=== PATIENT | male | born 1960 | race American Indian/Alaskan Native ===

== ENCOUNTER 2018-07-08 11:45 | Inpatient (IN) | payer MEDICAID, MEDICARE, OTHER ==
[2018-07-08] MEDS ORDERED: ZOFRAN IV ONE (12:47)
[2018-07-08] MEDS ORDERED: SUBLIMAZE IV ONE (12:47)
--- NOTE | 2018-07-08 13:00 | Emergency Department Report ---
HPI - General Chief Complaint: Abdominal Pain Time Seen by Provider: 07/08/18 12:28 - HPI HPI: Room 10 The patient is a 58-year-old male presenting with a chief complaint of abdominal pain. The patient states he's had intermittent periumbilical and epigastric abdominal pain for the past month. Patient describes the pain is dull in nature. Patient denies nausea vomiting or diarrhea. Patient denies history of fever. Patient admits to constipation. The patient states when he awakened this morning he had pain along the proximal aspect of his left forearm. Patient denies any preceding trauma Location: [See above] Duration: One month Quality: Dull Severity: Moderate Modifying factors: [see above] Context: [see above] Mode of transportation: [not driving] ED Past Medical Hx - Past Medical History Previous Medical History?: No - Surgical History Past Surgical History?: No - Family History Family history: no significant - Social History Smoking Status: Never Smoker Substance Use Type: None (denies illicit drug use) - Medications Home Medications: Home Medications Medication Instructions Recorded Confirmed Last Taken Type No Known Home Medications [No 07/08/18 07/08/18 Unknown History Reported Home Medications] ED Review of Systems ROS: Stated complaint: ABD PAIN Other details as noted in HPI Constitutional: denies: fever Eyes: denies: eye pain ENT: denies: throat pain Respiratory: no symptoms reported Cardiovascular: denies: chest pain Endocrine: no symptoms reported Gastrointestinal: abdominal pain. denies: nausea, vomiting, diarrhea Genitourinary: denies: dysuria Musculoskeletal: denies: back pain Neurological: denies: headache Physical Exam - Physical Exam Vital Signs: Vital Signs 07/08/18 12:11 Temperature 98.2 F Pulse Rate 65 Respiratory 18 Rate Blood Pressure 154/86 O2 Sat by Pulse 100 Oximetry Physical Exam: GENERAL: The patient is well-developed well-nourished male lying on stretcher not appear to be in acute distress. [] HEENT: Normocephalic. Atraumatic. Extraocular motions are intact. Patient has moist mucous membranes. NECK: Supple. Trachea midline CHEST/LUNGS: Clear to auscultation. There is no respiratory distress noted. HEART/CARDIOVASCULAR: Regular. There is no tachycardia. There is no gallop rub or murmur. ABDOMEN: Abdomen is soft but gaseous, nontender. Patient has normal bowel sounds. There is moderate abdominal distention. SKIN: There is no rash. There is no edema. There is no diaphoresis. NEURO: The patient is awake, alert, and oriented. The patient is cooperative. The patient has normal speech MUSCULOSKELETAL: There is no evidence of acute injury. RECTAL : Guaiac negative brown stool ED Course Vital Signs 07/08/18 12:11 Temperature 98.2 F Pulse Rate 65 Respiratory 18 Rate Blood Pressure 154/86 O2 Sat by Pulse 100 Oximetry ED Medical Decision Making - Lab Data Result diagrams: 07/08/18 14:03 07/08/18 13:13 Laboratory Tests 07/08/18 07/08/18 13:13 14:03 WBC 6.7 RBC 2.99 L Hgb 4.4 L* Hct 17.3 L* MCV 58 L MCH 15 L MCHC 26 L RDW 23.2 H Plt Count 899 H Sodium 135 L Potassium 3.9 Chloride 101.0 Carbon Dioxide 20 L Anion Gap 18 BUN 11 Creatinine 0.6 L Estimated GFR > 60 BUN/Creatinine Ratio 18 Glucose 99 Calcium 8.6 Total Bilirubin 0.30 AST 9 ALT < 5 L Alkaline Phosphatase 77 Total Protein 7.7 Albumin 3.1 L Albumin/Globulin Ratio 0.7 Lipase 16 - Radiology Data Radiology results: report reviewed (CT abdomen and pelvis) - Differential Diagnosis gastritis, peptic ulcer disease, pancreatitis Critical care attestation.: If time is entered above; I have spent that time in minutes in the direct care of this critically ill patient, excluding procedure time. ED Disposition Clinical Impression: Abdominal pain, Liver mass, Anemia, Bilateral pleural effusion Disposition: OP ADMIT IP TO THIS HOSP Is pt being admited?: Yes Does the pt Need Aspirin: No Condition: Fair Time of Disposition: 15:25 (hospitalist notified (Dr Lizarraga))
[2018-07-08 13:53] LABS: Albumin 3.1 g/dL (3.9-5); BUN/Creatinine Ratio 18; Blood Urea Nitrogen 11 mg/dL (9-20); Calcium 8.6 mg/dL (8.4-10.2); Hemolysis Index 0
[2018-07-08 13:56] LABS: Alanine Aminotransferase < 5 units/L (7-56)
[2018-07-08 14:19] LABS: Mean Corpuscular HGB Conc 26 % (32-34); Platelet Count 899 K/mm3 (140-440); Red Blood Count 2.99 M/mm3 (3.65-5.03)
[2018-07-08 14:31] LABS: Hematocrit 17.3 % (35.5-45.6); Hemoglobin 4.4 gm/dl (11.8-15.2); Mean Corpuscular Volume 58 fl (84-94); Red Cell Distribution Width 23.2 % (13.2-15.2)
[2018-07-08] MEDS ORDERED: NACL 0.9% 500 ML 500 ML IV ONE (14:34)
--- NOTE | 2018-07-08 15:08 | Cat Scan Report ---
CT scan of abdomen and pelvis with IV contrast: History: Epigastric abdominal pain. Findings Bibasilar atelectasis. Moderate right pleural effusion with minimal left pleural effusion. Minimal to moderate pericardial effusion with a thickness of 1.3 cm. Circumscribed hypoechoic mass in the liver measuring 3.6 x 8.07 cm. Normal spleen. Atrophic pancreas. Very large amount of ascitic fluid in the abdomen. Normal adrenals kidneys and bladder. Calcification in the central prostate. Prostate measures 4x4 0.2 cm. Gaseous colon with stool in colon. Impression: Bilateral pleural effusion and pericardial effusion as detailed above. Mass in the liver. Large amount of ascitic fluid in the abdomen.
--- NOTE | 2018-07-08 15:48 | History and Physical Report ---
History of Present Illness Chief complaint: He hasn't been taking care of himself History of present illness: 58 YO Male with Developmental Delay, Debility presents to ED for evaluation. Pt is unable to provide detailed history. Pt sister is at bedside during exam and interview and provides history. As per sister, the patient has experienced 30lbs weight loss over the past 2 month, as well as decreased oral intake, abdominal pain, generalized weakness, and inability to care for himself. EMS notified and upon arrival the patient was found to be in distress and transported to [facility]. Pt seen and evaluated in ED and found to have Blood loss anemia suspected secondary to Colon Cancer, Acidosis, and, Hyponatremia. Pt admitted to Medical Floor. GI consulted in ED. No report of fever, chills, CP, palpitations, NVD, Trauma, Skin Rash, productive cough, or recent ill contacts. No further history obtailable. No report of BRBPR. No prior admission for review. No medication listed for reconciliation at time of admission. Past History Past Medical History: other (Developmental Delay, Debility) Past Surgical History: No surgical history, Other (reviewed) Social history: single. denies: smoking, alcohol abuse, prescription drug abuse Family history: hypertension Medications and Allergies Allergies Allergy/AdvReac Type Severity Reaction Status Date / Time No Known Allergies Allergy Unverified 07/08/18 12:10 Home Medications Medication Instructions Recorded Confirmed Last Taken Type No Known Home Medications [No 07/08/18 07/08/18 Unknown History Reported Home Medications] Review of Systems ROS unobtainable: due to mental status Exam - Constitutional Vitals: Temp Pulse Resp BP Pulse Ox 98.2 F 65 18 154/86 100 07/08/18 12:11 07/08/18 12:11 07/08/18 13:40 07/08/18 12:11 07/08/18 12:30 General appearance: Present: mild distress - EENT Eyes: Present: EOM intact (conjunctival pallor) ENT: hearing intact, clear oral mucosa - Neck Neck: Present: supple, normal ROM - Respiratory Respiratory effort: normal Respiratory: bilateral: CTA - Cardiovascular Heart Sounds: Present: S1 & S2. Absent: rub, click - Extremities Extremities: pulses symmetrical, No edema Peripheral Pulses: within normal limits - Abdominal General gastrointestinal: Present: soft Male genitourinary: Present: normal - Integumentary Integumentary: Present: clear, warm, dry - Musculoskeletal Musculoskeletal: generalized weakness - Psychiatric Psychiatric: no appropriate mood/affect, no intact judgment & insight, no memory intact - Neurologic Neurologic: CNII-XII intact, moves all extremities, no gait normal Results - Labs CBC & Chem 7: 07/08/18 14:03 07/08/18 13:13 Labs: Abnormal lab results 07/08/18 07/08/18 Range/Units 13:13 14:03 RBC 2.99 L (3.65-5.03) M/mm3 Hgb 4.4 L* (11.8-15.2) gm/dl Hct 17.3 L* (35.5-45.6) % MCV 58 L (84-94) fl MCH 15 L (28-32) pg MCHC 26 L (32-34) % RDW 23.2 H (13.2-15.2) % Plt Count 899 H (140-440) K/mm3 Sodium 135 L (137-145) mmol/L Carbon Dioxide 20 L (22-30) mmol/L Creatinine 0.6 L (0.8-1.5) mg/dL ALT < 5 L (7-56) units/L Albumin 3.1 L (3.9-5) g/dL Assessment and Plan - Patient Problems (1) Bilateral pleural effusion Current Visit: Yes Status: Acute Plan to address problem: Sespect secondary to ascites, Right Lateral decubitus chest x ray, consider thoracentesis if effesion is amenable for drainage. IR consulted. (2) Acidosis Current Visit: Yes Status: Acute Plan to address problem: IVF resuscitation therapy, repeat bmp in AM. (3) Hyponatremia syndrome Current Visit: Yes Status: Acute Plan to address problem: IVF resuscitation therapy as tolerated, repeat bmp in AM. (4) Colon cancer metastasized to liver Current Visit: Yes Status: Acute Plan to address problem: GI consulted for endoscopy, stool hemoccult, CT Abdomen pelvis, pain control, CMP, (5) Anemia Current Visit: Yes Status: Acute Plan to address problem: CBC, PRBC Transfusion, supportive care. (6) Liver mass Current Visit: Yes Status: Acute Plan to address problem: CT ABdomen/Pelvis, GI consulted, CEA, CA 19-9, (7) DVT prophylaxis Current Visit: Yes Status: Acute Plan to address problem: SCD to BLE while in bed. Hold anticoagulation for now due to symptomatic anemia.
[2018-07-08 15:51] LABS: Anisocytosis 2+; RBC Morphology Normal; Total Cells Counted 100
[2018-07-08 15:52] LABS: Hypochromasia 3+
[2018-07-08] MEDS ORDERED: ZOFRAN IV PRN (15:52)
[2018-07-08] MEDS ORDERED: TYLENOL PO PRN (15:52)
[2018-07-08] MEDS ORDERED: PROVENTIL IH PRN (15:52)
[2018-07-08] MEDS ORDERED: SODIUM CHLORIDE FLUSH SYRINGE 10 ML IV PRN (15:52)
[2018-07-08] MEDS ORDERED: NACL 0.9% 500 ML 500 ML IV SCH (15:58)
[2018-07-08 18:15] LABS: Free T4 (Free Thyroxine) 1.17 ng/dL (0.76-1.46)
[2018-07-08] MEDS: DILAUDID IV PRN (19:30)
--- NOTE | 2018-07-08 20:28 | XRay Report ---
PROCEDURE: XR CHEST 1V AP TECHNIQUE: Chest radiograph single view. HISTORY: Effusion COMPARISONS: None . FINDINGS: Heart: Normal. Mediastinum/Vessels: Normal. Lungs/Pleural space: There is moderate degree of right pleural effusion. Left lung and left pleural space are clear.. Bony thorax: No acute osseous abnormality. Life support devices: None. IMPRESSION: Moderate degree right pleural effusion obscuring the right lower lung. This document is electronically signed by Fei Webster MD., Jul 08 2018 08:26:42 PM ET
[2018-07-08] MEDS ORDERED: HEPARIN SUB-Q SCH (22:00)
[2018-07-08] MEDS: SODIUM CHLORIDE FLUSH SYRINGE 10 ML IV SCH (22:34)
[2018-07-09 08:07] LABS: Hematocrit 25.1 % (35.5-45.6); Hemoglobin 7.5 gm/dl (11.8-15.2); Mean Corpuscular HGB Conc 30 % (32-34); Platelet Count 584 K/mm3 (140-440); Red Blood Count 3.71 M/mm3 (3.65-5.03)
[2018-07-09 08:09] LABS: Mean Corpuscular Volume 68 fl (84-94)
--- NOTE | 2018-07-09 10:53 | Gastroenterology Consultation ---
History of Present Illness - Reason for Consult Consult date: 07/09/18 liver mass Requesting physician: TON MARTINEZ - History of Present Illness Patient is a 58 y/o male with PMH of developmental delay, debility who presented to ED for evaluation of abdominal pain and generalized weakness. Upon admission he was found to be severely anemic with abd CT showing liver mass with ascites to which GI has been consulted. This morning patient was resting in bed w/o acute distress and family at bedside who assisted with providing history (patient noted to be poor historian). Reports generalized abd pain x 1-2 months with associated decrease in appetite and wt loss (~30lbs). No active signs of bleeding such as hematemesis, melena, or hematochezia. Denies fever, CP, N/V, diarrhea, or constipation (per chart review admitted to constipation upon arrival). Unsure of last BM. No NSAID use, alcohol use, or illicit drug use. No hx of liver disease or PUD. No prior EGD/colonoscopy. No known Fhx of GI cancers. Past History Past Medical History: other (Developmental Delay, Debility) Past Surgical History: No surgical history Social history: single. denies: smoking, alcohol abuse, prescription drug abuse Family history: hypertension Medications and Allergies Allergies Allergy/AdvReac Type Severity Reaction Status Date / Time No Known Allergies Allergy Unverified 07/08/18 12:10 Home Medications Medication Instructions Recorded Confirmed Last Taken Type No Known Home Medications [No 07/08/18 07/08/18 Unknown History Reported Home Medications] Active Meds: Active Medications Acetaminophen (Tylenol) 650 mg PO Q4H PRN PRN Reason: Pain MILD(1-3)/Fever >100.5/SALDAÑA Albuterol (Proventil) 2.5 mg IH Q4HRT PRN PRN Reason: Shortness Of Breath Hydromorphone HCl (Dilaudid) 0.5 mg IV Q4H PRN PRN Reason: pain Last Admin: 07/08/18 19:30 Dose: 0.5 mg Documented by: Ondansetron HCl (Zofran) 4 mg IV Q8H PRN PRN Reason: Nausea And Vomiting Sodium Chloride (Sodium Chloride Flush Syringe 10 Ml) 10 ml IV BID KRISHAN Last Admin: 07/08/18 22:34 Dose: 10 ml Documented by: Sodium Chloride (Sodium Chloride Flush Syringe 10 Ml) 10 ml IV PRN PRN PRN Reason: LINE FLUSH Sodium Chloride (Nacl 0.9% 500 Ml) 500 ml IV ONCE ONE Stop: 07/09/18 11:01 medications reviewed/updated as required Review of Systems - Review of Systems All systems: negative Constitutional: weakness, poor appetite Gastrointestinal: abdominal pain Exam - Constitutional Vital Signs: Temp Pulse Resp BP Pulse Ox 97.9 F 68 20 157/70 99 07/09/18 05:45 07/09/18 05:45 07/09/18 05:45 07/09/18 05:45 07/09/18 08:52 General appearance: no acute distress - Respiratory Respiratory: bilateral: diminished - Cardiovascular Rhythm: regular - Gastrointestinal General gastrointestinal: Present: soft, non-tender, distended (ascites), normal bowel sounds - Labs CBC & Chem 7: 07/09/18 07:42 07/08/18 13:13 Lab Results: Laboratory Results - last 24 hr 07/08/18 07/08/18 07/08/18 13:13 14:03 15:24 WBC 6.7 RBC 2.99 L Hgb 4.4 L* Hct 17.3 L* MCV 58 L MCH 15 L MCHC 26 L RDW 23.2 H Plt Count 899 H Add Manual Diff Complete Total Counted 100 Seg Neuts % (Manual) 68.0 Band Neutrophils % 0 Lymphocytes % (Manual) 21.0 Reactive Lymphs % (Man) 0 Monocytes % (Manual) 9.0 H Eosinophils % (Manual) 1.0 Basophils % (Manual) 1.0 Metamyelocytes % 0 Myelocytes % 0 Promyelocytes % 0 Blast Cells % 0 Nucleated RBC % Not Reportable Seg Neutrophils # Man 4.6 Band Neutrophils # 0.0 Lymphocytes # (Manual) 1.4 Abs React Lymphs (Man) 0.0 Monocytes # (Manual) 0.6 Eosinophils # (Manual) 0.1 Basophils # (Manual) 0.1 Metamyelocytes # 0.0 Myelocytes # 0.0 Promyelocytes # 0.0 Blast Cells # 0.0 WBC Morphology Not Reportable Hypersegmented Neuts Not Reportable Hyposegmented Neuts Not Reportable Hypogranular Neuts Not Reportable Smudge Cells Not Reportable Toxic Granulation Not Reportable Toxic Vacuolation Not Reportable Dohle Bodies Not Reportable Pelger-Huet Anomaly Not Reportable Candelario Rods Not Reportable Platelet Estimate Not Reportable Clumped Platelets Not Reportable Plt Clumps, EDTA Not Reportable Large Platelets Not Reportable Giant Platelets Not Reportable Platelet Satelliting Not Reportable Plt Morphology Comment Not Reportable RBC Morphology Normal Dimorphic RBCs Not Reportable Polychromasia Not Reportable Hypochromasia 3+ Poikilocytosis Not Reportable Anisocytosis 2+ Microcytosis 2+ Macrocytosis Not Reportable Spherocytes Not Reportable Pappenheimer Bodies Not Reportable Sickle Cells Not Reportable Target Cells Not Reportable Tear Drop Cells Not Reportable Ovalocytes Not Reportable Helmet Cells Not Reportable [place] Bodies Not Reportable Burnside Rings Not Reportable Angora Cells Not Reportable Bite Cells Not Reportable Crenated Cell Not Reportable Elliptocytes Not Reportable Acanthocytes (Spur) Not Reportable Rouleaux Not Reportable Hemoglobin C Crystals Not Reportable Schistocytes Not Reportable Malaria parasites Not Reportable Tray Bodies Not Reportable Hem Pathologist Commnt No Sodium 135 L Potassium 3.9 Chloride 101.0 Carbon Dioxide 20 L Anion Gap 18 BUN 11 Creatinine 0.6 L Estimated GFR > 60 BUN/Creatinine Ratio 18 Glucose 99 Calcium 8.6 Total Bilirubin 0.30 AST 9 ALT < 5 L Alkaline Phosphatase 77 Total Protein 7.7 Albumin 3.1 L Albumin/Globulin Ratio 0.7 Lipase 16 TSH Free T4 Blood Type A POSITIVE Antibody Screen Negative Crossmatch See Detail 07/08/18 07/09/18 17:22 07:42 WBC 7.5 RBC 3.71 Hgb 7.5 L D Hct 25.1 L D MCV 68 L MCH 20 L MCHC 30 L RDW 32.0 H Plt Count 584 H Add Manual Diff Total Counted Seg Neuts % (Manual) Band Neutrophils % Lymphocytes % (Manual) Reactive Lymphs % (Man) Monocytes % (Manual) Eosinophils % (Manual) Basophils % (Manual) Metamyelocytes % Myelocytes % Promyelocytes % Blast Cells % Nucleated RBC % Seg Neutrophils # Man Band Neutrophils # Lymphocytes # (Manual) Abs React Lymphs (Man) Monocytes # (Manual) Eosinophils # (Manual) Basophils # (Manual) Metamyelocytes # Myelocytes # Promyelocytes # Blast Cells # WBC Morphology Hypersegmented Neuts Hyposegmented Neuts Hypogranular Neuts Smudge Cells Toxic Granulation Toxic Vacuolation Dohle Bodies Pelger-Huet Anomaly Candelario Rods Platelet Estimate Clumped Platelets Plt Clumps, EDTA Large Platelets Giant Platelets Platelet Satelliting Plt Morphology Comment RBC Morphology Dimorphic RBCs Polychromasia Hypochromasia Poikilocytosis Anisocytosis Microcytosis Macrocytosis Spherocytes Pappenheimer Bodies Sickle Cells Target Cells Tear Drop Cells Ovalocytes Helmet Cells [place] Bodies Burnside Rings Shanthi Cells Bite Cells Crenated Cell Elliptocytes Acanthocytes (Spur) Rouleaux Hemoglobin C Crystals Schistocytes Malaria parasites Tray Bodies Hem Pathologist Commnt Sodium Potassium Chloride Carbon Dioxide Anion Gap BUN Creatinine Estimated GFR BUN/Creatinine Ratio Glucose Calcium Total Bilirubin AST ALT Alkaline Phosphatase Total Protein Albumin Albumin/Globulin Ratio Lipase TSH 1.550 Free T4 1.17 Blood Type Antibody Screen Crossmatch Assessment and Plan 1.abdominal pain 2.weight loss/decrease in appetite 3.anemia 4.liver mass seen on CT with ascites -afebrile -WBC WNL -lipase and LFTs WNL -CEA, CA 23-9-nhmcunb -H/H 7.5/25.1-s/p blood transfusion (4.4/17.3 on admission) -continue to monitor H/H and transfuse as needed -no active signs of bleeding -abd CT showed bilateral pleural effusion (thoracentesis pending), liver mass, and large amount of ascites -etiology unclear- suspicion for possible colon cancer with mets to liver -will order paracentesis today for ascites with fluid to be sent for cytology -recommend EGD/colonoscopy for further evaluation of anemia (r/o malignancy) once paracentesis completed (likely on ) -start on PPI -AFP in am -continue to trend labs and supportive care -further recommendations to follow
[2018-07-09] MEDS ORDERED: NACL 0.9% 500 ML IV ONE (11:00)
[2018-07-09] MEDS: PROTONIX PO SCH (12:20)
[2018-07-09] MEDS: SODIUM CHLORIDE FLUSH SYRINGE 10 ML IV SCH ×2 (12:23→21:06)
[2018-07-09] MEDS: DILAUDID IV PRN (21:05)
[2018-07-10 06:38] LABS: Hematocrit 31.7 % (35.5-45.6); Mean Corpuscular HGB Conc 32 % (32-34); Mean Corpuscular Volume 72 fl (84-94); Platelet Count 427 K/mm3 (140-440)
[2018-07-10 07:01] LABS: Albumin 2.5 g/dL (3.9-5); BUN/Creatinine Ratio 18; Blood Urea Nitrogen 11 mg/dL (9-20); Hemolysis Index 27
[2018-07-10 07:19] LABS: Alanine Aminotransferase < 5 units/L (7-56)
[2018-07-10 08:09] LABS: Hepatitis B Surface Antigen Non-Reactive (Negative); Hepatitis C Virus Antibody Non-Reactive (NonReactive)
--- NOTE | 2018-07-10 08:21 | Progress Note ---
Assessment and Plan /Moderate bilateral pleural effusion Right more than left, likely from underlying metastatic disease and hepatitic mass ordered thoracentesis, IR consulted. / Hyponatremia Likely from hypervolemia, monitor BMP DC IV fluid /Possible Colon cancer metastasized to liver GI consulted for endoscopy, stool + hemoccult, / Anemia due to GI bleed Monitor CBC, PRBC Transfusion, supportive care. / Liver mass Could be metastatic lesion GI consulted, ordered CEA, CA 19-9, /DVT prophylaxis SCD to BLE while in bed. Hold anticoagulation for now due to symptomatic anemia. Brief History: Patient is a 58 y/o male with PMH of developmental delay, debility who presented to ED for evaluation of abdominal pain and generalized weakness. Upon admission he was found to be severely anemic with hb 4.4, abd CT showing liver mass with ascites. Family Reports generalized abd pain x 1-2 months with associated de crease in appetite and wt loss (~30lbs). He was admitted for further fibrillation and management. Radiological data: CT abdomen and pelvis: Bilateral pleural effusion and pericardial effusion as detailed above. Mass in the liver. Large amount of ascitic fluid in the abdomen. Hospitalist Physical exam: GENERAL: -Prydeinig male lying on bed appeared to be in no discomfort. HEENT: Normocephalic. Atraumatic. No conjunctival congestion or icterus. Patient has moist mucous membranes. NECK: Supple. Trachea midline. CHEST/LUNGS: Diminished breath sound bilaterally, breathing nonlabored. No wheezes crackles or rhonchi. HEART/CARDIOVASCULAR: Regular in rate and rhythm. S1 and S2 positive. ABDOMEN: Abdomen is soft, nontender, distended. Patient has normal bowel sounds. SKIN: There is no rash. Warm and dry. NEURO: No focal motor deficit. Follows command. MUSCULOSKELETAL: No joint effusion or tenderness. EXTRIMITY: No edema, no cyanosis or clubbing. PSYCH: Cooperative. Subjective Date of service: 07/09/18 Interval history: Patient seen and examined. Medical records and medication list reviewed. No acute event overnight noted by the RN. Patient unable to provide detailed history Denies any active bleeding Objective - Constitutional Vitals: Vital Signs - 12hr 07/10/18 07/10/18 07/10/18 00:43 00:45 06:21 Temperature 100.1 F H 98.0 F Pulse Rate 89 67 Respiratory 20 18 Rate Blood Pressure 150/62 113/51 O2 Sat by Pulse 90 92 Oximetry - Labs CBC & Chem 7: 07/10/18 06:01 07/10/18 06:01 Labs: Abnormal lab results 07/08/18 07/10/18 07/10/18 Range/Units 15:24 06:01 06:01 WBC 16.5 H (4.5-11.0) K/mm3 Hgb 10.0 L (11.8-15.2) gm/dl Hct 31.7 L D (35.5-45.6) % MCV 72 L (84-94) fl MCH 23 L (28-32) pg RDW 29.0 H (13.2-15.2) % Sodium 135 L (137-145) mmol/L Carbon Dioxide 19 L (22-30) mmol/L Creatinine 0.6 L (0.8-1.5) mg/dL Calcium 8.0 L (8.4-10.2) mg/dL ALT < 5 L (7-56) units/L Total Protein 6.2 L (6.3-8.2) g/dL Albumin 2.5 L (3.9-5) g/dL Crossmatch See Detail
[2018-07-10 09:46] LABS: INR 1.16 (0.87-1.13)
[2018-07-10 09:47] LABS: Partial Thromboplastin Time 35.4 Sec. (24.2-36.6)
[2018-07-10] MEDS: SODIUM CHLORIDE FLUSH SYRINGE 10 ML IV SCH ×2 (10:24→21:30)
[2018-07-10] MEDS ORDERED: XYLOCAINE 1% 20 mL ONE (10:52)
--- NOTE | 2018-07-10 11:23 | Gastroenterology Progress Note ---
Assessment and Plan 1.abdominal pain 2.weight loss/decrease in appetite 3.anemia 4.liver mass seen on CT with ascites -afebrile -WBC WNL -lipase and LFTs WNL -hepatitis panel negative -INR 1.16, plt ct WNL -CEA, CA 19-9, and AFP-pending -H/H 10.0/31.7-s/p blood transfusion (4.4/17.3 on admission) -continue to monitor H/H and transfuse as needed -no active signs of bleeding -abd CT showed bilateral pleural effusion (thoracentesis pending), liver mass, a nd large amount of ascites -etiology unclear- likely malignant ascites -paracentesis pending for today for ascites with fluid to be sent for cytology -will tentatively schedule EGD/colonoscopy for tomorrow for further evaluation of anemia (r/o malignancy) once paracentesis complete -okay for clear liquids today then NPO after MN -continue PPI -continue to trend labs and supportive care -will follow Subjective Date of service: 07/10/18 Principal diagnosis: liver mass Interval history: No acute distress. No active signs of bleeding. Denies abd pain or N/V. Objective - Constitutional Vitals: Temp Pulse Resp BP Pulse Ox 98.0 F 67 18 113/51 94 07/10/18 06:21 07/10/18 06:21 07/10/18 06:21 07/10/18 06:21 07/10/18 08:46 General appearance: no acute distress - Respiratory Respiratory: bilateral: diminished - Cardiovascular Rhythm: regular - Gastrointestinal General gastrointestinal: Present: soft, distended (ascites), normal bowel sounds - Labs CBC & Chem 7: 07/10/18 06:01 07/10/18 06:01 Labs: Laboratory Results - last 24 hr 07/08/18 07/10/18 07/10/18 15:24 06:01 06:01 WBC 16.5 H RBC 4.40 Hgb 10.0 L Hct 31.7 L D MCV 72 L MCH 23 L MCHC 32 RDW 29.0 H Plt Count 427 PT INR APTT Sodium Potassium Chloride Carbon Dioxide Anion Gap BUN Creatinine Estimated GFR BUN/Creatinine Ratio Glucose Calcium Total Bilirubin AST ALT Alkaline Phosphatase Total Protein Albumin Albumin/Globulin Ratio Hepatitis A IgM Ab Non-reactive Hep Bs Antigen Non-reactive Hep B Core IgM Ab Non-reactive Hepatitis C Antibody Non-reactive Blood Type A POSITIVE Antibody Screen Negative Crossmatch See Detail 07/10/18 07/10/18 06:01 08:34 WBC RBC Hgb Hct MCV MCH MCHC RDW Plt Count PT 15.5 H INR 1.16 H APTT 35.4 Sodium 135 L Potassium 4.0 Chloride 104.2 Carbon Dioxide 19 L Anion Gap 16 BUN 11 Creatinine 0.6 L Estimated GFR > 60 BUN/Creatinine Ratio 18 Glucose 83 Calcium 8.0 L Total Bilirubin 1.00 AST 11 ALT < 5 L Alkaline Phosphatase 68 Total Protein 6.2 L Albumin 2.5 L Albumin/Globulin Ratio 0.7 Hepatitis A IgM Ab Hep Bs Antigen Hep B Core IgM Ab Hepatitis C Antibody Blood Type Antibody Screen Crossmatch
[2018-07-10] MEDS ORDERED: GOLYTELY PO ONE (11:31)
--- NOTE | 2018-07-10 12:52 | Progress Note ---
Assessment and Plan /Moderate bilateral pleural effusion Right more than left, likely from underlying metastatic disease and hepatitic mass ordered thoracentesis, IR consulted. / Hyponatremia Likely from hypervolemia, monitor BMP DC IV fluid /Possible Colon cancer metastasized to liver GI consulted for endoscopy, stool + hemoccult, / Anemia due to GI bleed Monitor CBC, PRBC Transfusion, supportive care. / Liver mass Could be metastatic lesion GI consulted, ordered CEA, CA 19-9, /Ascitis, due to liver mass - s/p paracentesis today drained 4L fluid, wait for fluid study /DVT prophylaxis SCD to BLE while in bed. Hold anticoagulation for now due to symptomatic anemia. Brief History: Patient is a 58 y/o male with PMH of developmental delay, debility who presented to ED for evaluation of abdominal pain and generalized weakness. Upon admission he was found to be severely anemic with hb 4.4, abd CT showing liver mass with ascites. Family Reports generalized abd pain x 1-2 months with associated decrease in appetite and wt loss (~30lbs). He was admitted for further fibrillation and management. Radiological data: CT abdomen and pelvis: Bilateral pleural effusion and pericardial effusion as detailed above. Mass in the liver. Large amount of ascitic fluid in the abdomen. Hospitalist Physical exam: GENERAL: -[place] male lying on bed appeared to be in no discomfort. HEENT: Normocephalic. Atraumatic. No conjunctival congestion or icterus. Patient has moist mucous membranes. NECK: Supple. Trachea midline. CHEST/LUNGS: Diminished breath sound bilaterally, breathing nonlabored. No wheezes crackles or rhonchi. HEART/CARDIOVASCULAR: Regular in rate and rhythm. S1 and S2 positive. ABDOMEN: Abdomen is soft, nontender, distended. Patient has normal bowel sounds. SKIN: There is no rash. Warm and dry. NEURO: No focal motor deficit. Follows command. MUSCULOSKELETAL: No joint effusion or tenderness. EXTRIMITY: No edema, no cyanosis or clubbing. PSYCH: Cooperative. Subjective Date of service: 07/10/18 Principal diagnosis: liver mass Interval history: Patient seen and examined. Medical records and medication list reviewed. No acute event overnight noted by the RN. Patient unable to provide detailed history Denies any active bleeding Objective - Constitutional Vitals: Vital Signs - 12hr 07/10/18 07/10/18 06:21 08:46 Temperature 98.0 F Pulse Rate 67 Respiratory 18 Rate Blood Pressure 113/51 O2 Sat by Pulse 92 94 Oximetry - Labs CBC & Chem 7: 07/11/18 12:38 07/11/18 12:28 Labs: Abnormal lab results 07/08/18 07/10/18 07/10/18 Range/Units 15:24 06:01 06:01 WBC 16.5 H (4.5-11.0) K/mm3 Hgb 10.0 L (11.8-15.2) gm/dl Hct 31.7 L D (35.5-45.6) % MCV 72 L (84-94) fl MCH 23 L (28-32) pg RDW 29.0 H (13.2-15.2) % PT (12.2-14.9) Sec. INR (0.87-1.13) Sodium 135 L (137-145) mmol/L Carbon Dioxide 19 L (22-30) mmol/L Creatinine 0.6 L (0.8-1.5) mg/dL Calcium 8.0 L (8.4-10.2) mg/dL ALT < 5 L (7-56) units/L Total Protein 6.2 L (6.3-8.2) g/dL Albumin 2.5 L (3.9-5) g/dL Crossmatch See Detail 07/10/18 Range/Units 08:34 WBC (4.5-11.0) K/mm3 Hgb (11.8-15.2) gm/dl Hct (35.5-45.6) % MCV (84-94) fl MCH (28-32) pg RDW (13.2-15.2) % PT 15.5 H (12.2-14.9) Sec. INR 1.16 H (0.87-1.13) Sodium (137-145) mmol/L Carbon Dioxide (22-30) mmol/L Creatinine (0.8-1.5) mg/dL Calcium (8.4-10.2) mg/dL ALT (7-56) units/L Total Protein (6.3-8.2) g/dL Albumin (3.9-5) g/dL Crossmatch
[2018-07-10 14:04] LABS: Anisocytosis 2+; Band Neutrophils # (Manual) 0.3 K/mm3; Basophils % (Manual) 0 % (0.0-1.8); Eosinophils % (Manual) 0 % (0.0-4.3); Hypochromasia 1+; Platelet Estimate Consistent w Auto; Total Cells Counted 100
--- NOTE | 2018-07-10 14:08 | Procedure Note ---
Date of procedure: 07/10/18 Pre-op diagnosis: Ascites Post-op diagnosis: same Procedure: US guided paracentesis Findings: 3 liters of blood tinged serous fluid removed. Anesthesia: local Surgeon: PADMINI BOX Estimated blood loss: none Specimen disposition: to lab Condition: stable Disposition: no change
--- NOTE | 2018-07-10 14:09 | Ultrasound Report ---
ULTRASOUND-GUIDED PARACENTESIS INDICATION: Ascites. COMPARISON: 07/08/2018 CT. FINDINGS: After explaining the risk and benefits to the patient, written informed consent obtained. Using ultrasound guidance, an appropriate skin site in the left lower quadrant marked. Skin prepped and draped in the usual sterile fashion. 1% Xylocaine used for local anesthesia. Using ultrasound guidance, a 5 [place] Yueh catheter was placed into the fluid collection and 3000 cc of blood-tinged serous fluid aspirated. Sample sent to laboratory. Catheter removed and hemostasis achieved. Patient tolerated the procedure well and left the radiology department in stable condition. CONCLUSION: Ultrasound guided paracentesis, as described above. Dr. Abrams present for and performed the entire procedure. Thank you for the opportunity to participate in this patient's care.
[2018-07-10 14:34] LABS: Total Cells Counted 100 /mm3
--- NOTE | 2018-07-10 14:42 | Anesthesia Consultation ---
Anesthesia Consult and Med Hx Date of service: 07/11/18 - Airway Anesthetic Teeth Evaluation: Poor, Edentulous ROM Head & Neck: Adequate Mental/Hyoid Distance: Adequate Mallampati Class: Class III - Pulmonary Exam CTA: Yes - Cardiac Exam Cardiac Exam: RRR - Pre-Operative Health Status ASA Pre-Surgery Classification: ASA3 Proposed Anesthetic Plan: MAC - Pulmonary Hx Smoking: No (chewing tobacco for years) Hx Respiratory Symptoms: No - Cardiovascular System Hx Hypertension: No Hx Heart Attack/AMI: No Hx Cardia Arrhythmia: No - Central Nervous System Hx Neuromuscular Disorder: No Hx Seizures: No Hx Psychiatric Problems: Yes (developmental delay) - Gastrointestinal Hx Gastroesophageal Reflux Disease: No - Endocrine Hx Renal Disease: No Hx Liver Disease: Yes (colon cancer mets to liver) Hx Insulin Dependent Diabetes: No Hx Non-Insulin Dependent Diabetes: No Hx Thyroid Disease: No - Hematic Hx Anemia: Yes - Other Systems Hx Alcohol Use: No Hx Cancer: Yes - Additional Comments Anesthesia Medical History Comments: No GAC, no FHAC
[2018-07-10] MEDS: PROTONIX PO SCH (15:45)
[2018-07-11] MEDS ORDERED: DIPRIVAN 10 MG/ML IV ONE (07:04)
[2018-07-11] MEDS ORDERED: XYLOCAINE 1% 20 mL ONE (10:08)
--- NOTE | 2018-07-11 10:54 | Ultrasound Report ---
ULTRASOUND THORACENTESIS INDICATION: Right pleural effusion. COMPARISON: 07/08/2018 CT. FINDINGS: Ultrasound guided right thoracentesis performed. Patient unable to consent for the procedure that was obtained from his sister after explaining the risks and benefits. Patient brought in the ultrasound room. An appropriate skin site marked. Using standard sterile precautions and 1% lidocaine for local anesthesia, 5 [place] Yueh catheter advanced into the pleural fluid. Total of approximately 900 cc of dark serous fluid obtained with sample sent to the lab. Catheter removed and hemostasis achieved. Patient returned to his room. No immediate complications. CONCLUSION: Status post right thoracentesis, as described. A 2 hour post procedure chest x-ray ordered. Dr. Abrams present for and performed the entire procedure. Thank you for the opportunity to participate in this patient's care.
--- NOTE | 2018-07-11 11:00 | Procedure Note ---
Date of procedure: 07/11/18 Pre-op diagnosis: Pleural Effusion Post-op diagnosis: same Procedure: US guided right thoracentesis Findings: 900 cc of dark serous fluid removed. Anesthesia: local Surgeon: PADMINI BOX Estimated blood loss: none Specimen disposition: to lab Condition: stable Disposition: floor (2 hr post proc CXR to be obatined.)
[2018-07-11 13:05] LABS: Hematocrit 38.5 % (35.5-45.6); Hemoglobin 11.9 gm/dl (11.8-15.2); Mean Corpuscular HGB Conc 31 % (32-34); Mean Corpuscular Volume 72 fl (84-94); Platelet Count 428 K/mm3 (140-440); Red Blood Count 5.33 M/mm3 (3.65-5.03)
[2018-07-11 13:19] LABS: Red Cell Distribution Width 30.6 % (13.2-15.2)
[2018-07-11 13:29] LABS: BUN/Creatinine Ratio 23; Blood Urea Nitrogen 14 mg/dL (9-20); Hemolysis Index 11
--- NOTE | 2018-07-11 13:51 | Gastroenterology Progress Note ---
Assessment and Plan 1.abdominal pain 2.weight loss/decrease in appetite 3.anemia 4.liver mass seen on CT with ascites -afebrile -WBC 12.3-trending down -lipase and LFTs WNL -hepatitis panel negative -INR 1.16, plt ct WNL -CEA, CA 19-9, and AFP-pending -H/H 11.9/38.5- trending up s/p blood transfusion (4.4/17.3 on admission) -continue to monitor H/H and transfuse as needed -no active signs of bleeding -abd CT showed bilateral pleural effusion (thoracentesis pending), liver mass, and large amount of ascites -etiology unclear- likely malignant ascites -s/p paracentesis with fluid pending for cytology -EGD/colonoscopy cancelled for today and rescheduled for tomorrow given incomplete colon prep overnight -okay for clear liquids today then NPO after MN -continue PPI -continue to trend labs and supportive care -will follow Subjective Date of service: 07/11/18 Principal diagnosis: liver mass Interval history: No acute distress. Patient only drank 1/3 of colon prep overnight with BMs x 3 of solid stool. Denies abd pain, N/V, or active signs of bleeding. Objective - Constitutional Vitals: Temp Pulse Resp BP Pulse Ox 97.9 F 68 16 153/73 98 07/11/18 12:21 07/11/18 12:21 07/11/18 12:21 07/11/18 12:21 07/11/18 12:21 General appearance: no acute distress - Respiratory Respiratory: bilateral: diminished - Cardiovascular Rhythm: regular - Gastrointestinal General gastrointestinal: Present: soft, non-distended, normal bowel sounds, mass - Labs CBC & Chem 7: 07/11/18 12:38 07/11/18 12:28 Labs: Laboratory Results - last 24 hr 07/10/18 07/10/18 07/11/18 06:01 Unknown 12:28 WBC RBC Hgb Hct MCV MCH MCHC RDW Plt Count Add Manual Diff Complete Total Counted 100 Seg Neuts % (Manual) 96.0 H Band Neutrophils % 2.0 Lymphocytes % (Manual) 1.0 L Reactive Lymphs % (Man) 0 Monocytes % (Manual) 1.0 Eosinophils % (Manual) 0 Basophils % (Manual) 0 Metamyelocytes % 0 Myelocytes % 0 Promyelocytes % 0 Blast Cells % 0 Nucleated RBC % 1.0 H Seg Neutrophils # Man 15.8 H Band Neutrophils # 0.3 Lymphocytes # (Manual) 0.2 L Abs React Lymphs (Man) 0.0 Monocytes # (Manual) 0.2 Eosinophils # (Manual) 0.0 Basophils # (Manual) 0.0 Metamyelocytes # 0.0 Myelocytes # 0.0 Promyelocytes # 0.0 Blast Cells # 0.0 WBC Morphology Not Reportable Hypersegmented Neuts Not Reportable Hyposegmented Neuts Not Reportable Hypogranular Neuts Not Reportable Smudge Cells Not Reportable Toxic Granulation Not Reportable Toxic Vacuolation Not Reportable Dohle Bodies Not Reportable Pelger-Huet Anomaly Not Reportable Candelario Rods Not Reportable Platelet Estimate Consistent w auto Clumped Platelets Not Reportable Plt Clumps, EDTA Not Reportable Large Platelets Not Reportable Giant Platelets Not Reportable Platelet Satelliting Not Reportable Plt Morphology Comment Not Reportable RBC Morphology Not Reportable Dimorphic RBCs Not Reportable Polychromasia Not Reportable Hypochromasia 1+ Poikilocytosis Not Reportable Anisocytosis 2+ Microcytosis Not Reportable Macrocytosis Not Reportable Spherocytes Not Reportable Pappenheimer Bodies Not Reportable Sickle Cells Not Reportable Target Cells Not Reportable Tear Drop Cells Not Reportable Ovalocytes Not Reportable Helmet Cells Not Reportable [place] Bodies Not Reportable [place] Not Reportable Shanthi Cells Not Reportable Bite Cells Not Reportable Crenated Cell Not Reportable Elliptocytes Not Reportable Acanthocytes (Spur) Not Reportable Rouleaux Not Reportable Hemoglobin C Crystals Not Reportable Schistocytes Not Reportable Malaria parasites Not Reportable Tray Bodies Not Reportable Hem Pathologist Commnt No Sodium 137 Potassium 4.1 Chloride 103.9 Carbon Dioxide 19 L Anion Gap 18 BUN 14 Creatinine 0.6 L Estimated GFR > 60 BUN/Creatinine Ratio 23 Glucose 87 Calcium 8.0 L Fluid Seg Neutrophils 7.0 Fluid Lymphocytes 50.0 Fluid Reactive Lymphs Not Reportable Fluid Monocytes 43.0 Fluid Eosinophils Not Reportable Fluid Basophils Not Reportable 07/11/18 12:38 WBC 12.3 H RBC 5.33 H Hgb 11.9 Hct 38.5 D MCV 72 L MCH 22 L MCHC 31 L RDW 30.6 H Plt Count 428 Add Manual Diff Total Counted Seg Neuts % (Manual) Band Neutrophils % Lymphocytes % (Manual) Reactive Lymphs % (Man) Monocytes % (Manual) Eosinophils % (Manual) Basophils % (Manual) Metamyelocytes % Myelocytes % Promyelocytes % Blast Cells % Nucleated RBC % Seg Neutrophils # Man Band Neutrophils # Lymphocytes # (Manual) Abs React Lymphs (Man) Monocytes # (Manual) Eosinophils # (Manual) Basophils # (Manual) Metamyelocytes # Myelocytes # Promyelocytes # Blast Cells # WBC Morphology Hypersegmented Neuts Hyposegmented Neuts Hypogranular Neuts Smudge Cells Toxic Granulation Toxic Vacuolation Dohle Bodies Pelger-Huet Anomaly Candelario Rods Platelet Estimate Clumped Platelets Plt Clumps, EDTA Large Platelets Giant Platelets Platelet Satelliting Plt Morphology Comment RBC Morphology Dimorphic RBCs Polychromasia Hypochromasia Poikilocytosis Anisocytosis Microcytosis Macrocytosis Spherocytes Pappenheimer Bodies Sickle Cells Target Cells Tear Drop Cells Ovalocytes Helmet Cells [place] Bodies [place] Shanthi Cells Bite Cells Crenated Cell Elliptocytes Acanthocytes ([place]) Rouleaux Hemoglobin C Crystals Schistocytes Malaria parasites Tray Bodies Hem Pathologist Commnt Sodium Potassium Chloride Carbon Dioxide Anion Gap BUN Creatinine Estimated GFR BUN/Creatinine Ratio Glucose Calcium Fluid Seg Neutrophils Fluid Lymphocytes Fluid Reactive Lymphs Fluid Monocytes Fluid Eosinophils Fluid Basophils
[2018-07-11] MEDS ORDERED: GOLYTELY PO ONE (14:01)
--- NOTE | 2018-07-11 14:01 | XRay Report ---
PORTABLE CHEST INDICATION: Post right thoracentesis. COMPARISON: 07/08/2018 FINDINGS: Portable, frontal chest radiograph again suggests mild cardiomegaly. Improved right lung base hazy opacity/effusion. No pneumothorax. Left lung remains clear. EKG leads. Stable bones. CONCLUSION: Improved right lower lung haziness/effusion following thoracentesis, as described. Thank you for the opportunity to participate in this patient's care.
[2018-07-11] MEDS: SODIUM CHLORIDE FLUSH SYRINGE 10 ML IV SCH ×2 (14:02→22:24)
[2018-07-11] MEDS: PROTONIX PO SCH (14:02)
--- NOTE | 2018-07-11 15:39 | Progress Note ---
Assessment and Plan /Possible Colon cancer metastasized to liver GI consulted for endoscopy, stool + hemoccult, Plan for colonoscopy tomorrow / Anemia due to GI bleed Monitor CBC, s/p 5 units PRBC Transfusion, supportive care. / Liver mass Could be metastatic lesion GI consulted, ordered CEA, CA 19-9, /Ascitis, due to liver mass - s/p paracentesis drained 4L fluid, wait for fluid study /Moderate bilateral pleural effusion Right more than left, likely from underlying metastatic disease and hepatitic mass s/p thoracentesis today draoned 900cc fluid / Hyponatremia Likely from hypervolemia, monitor BMP off IV fluid /DVT prophylaxis SCD to BLE while in bed. Hold anticoagulation for now due to symptomatic anemia. Brief History: Patient is a 58 y/o male with PMH of developmental delay, debility who presented to ED for evaluation of abdominal pain and generalized weakness. Upon admission he was found to be severely anemic with hb 4.4, abd CT showing liver mass with ascites. Family Reports generalized abd pain x 1-2 months with associated decrease in appetite and wt loss (~30lbs). He was admitted for further fi brillation and management. Radiological data: CT abdomen and pelvis: Bilateral pleural effusion and pericardial effusion as detailed above. Mass in the liver. Large amount of ascitic fluid in the abdomen. Hospitalist Physical exam: GENERAL: -[place] male lying on bed appeared to be in no discomfort. HEENT: Normocephalic. Atraumatic. No conjunctival congestion or icterus. Patient has moist mucous membranes. NECK: Supple. Trachea midline. CHEST/LUNGS: Diminished breath sound bilaterally, breathing nonlabored. No wheezes crackles or rhonchi. HEART/CARDIOVASCULAR: Regular in rate and rhythm. S1 and S2 positive. ABDOMEN: + solid mass on RUQ. Patient has normal bowel sounds. SKIN: There is no rash. Warm and dry. NEURO: No focal motor deficit. Follows command. MUSCULOSKELETAL: No joint effusion or tenderness. EXTRIMITY: No edema, no cyanosis or clubbing. PSYCH: Cooperative. Subjective Date of service: 07/11/18 Principal diagnosis: liver mass Interval history: Patient seen and examined. Medical records and medication list reviewed. No acute event overnight noted by the RN. Patient feels much better Denies any active bleeding, discussed with sister at bedside Objective - Constitutional Vitals: Vital Signs - 12hr 07/11/18 07/11/18 05:55 12:21 Temperature 97.9 F Pulse Rate 61 68 Respiratory 20 16 Rate Blood Pressure 152/80 153/73 O2 Sat by Pulse 98 98 Oximetry - Labs CBC & Chem 7: 07/11/18 12:38 07/11/18 12:28 Labs: Abnormal lab results 07/11/18 07/11/18 Range/Units 12:28 12:38 WBC 12.3 H (4.5-11.0) K/mm3 RBC 5.33 H (3.65-5.03) M/mm3 MCV 72 L (84-94) fl MCH 22 L (28-32) pg MCHC 31 L (32-34) % RDW 30.6 H (13.2-15.2) % Carbon Dioxide 19 L (22-30) mmol/L Creatinine 0.6 L (0.8-1.5) mg/dL Calcium 8.0 L (8.4-10.2) mg/dL
[2018-07-12 08:13] LABS: Hematocrit 42.8 % (35.5-45.6); Hemoglobin 13.3 gm/dl (11.8-15.2)
--- NOTE | 2018-07-12 08:40 | Progress Note ---
Assessment and Plan Assessment and plan: --Possible Colon cancer metastasized to liver GI consulted for endoscopy, stool + hemoccult, Plan for colonoscopy tomorrow --Anemia due to GI bleed Monitor CBC, s/p 5 units PRBC Transfusion, supportive care. --Liver mass Could be metastatic lesion GI consulted, ordered CEA, CA 19-9, --Ascitis, due to liver mass - s/p paracentesis drained 4L fluid, wait for fluid study --Moderate bilateral pleural effusion Right more than left, likely from underlying metastatic disease and hepatitic mass s/p thoracentesis today draoned 900cc fluid --Hyponatremia Likely from hypervolemia, monitor BMP off IV fluid --Severe malnutrition/hypoalbuminemia; nutrition consult Nutrition supplements and supportive care --DVT prophylaxis SCD to BLE while in bed. Hold anticoagulation for now due to symptomatic anemia. Brief History: Patient is a 58 y/o male with PMH of developmental delay, debility who presented to ED for evaluation of abdominal pain and generalized weakness. Upon admission he was found to be severely anemic with hb 4.4, abd CT showing liver mass with ascites. Family Reports generalized abd pain x 1-2 months with associated decrease in appetite and wt loss (~30lbs). He was admitted for further fibrillation and management. History Interval history: Patient seen and examined , medical records reviewed Scheduled for colonoscopy today Hospitalist Physical - Constitutional Vitals: Temp Pulse Resp BP Pulse Ox 97.8 F 72 20 148/85 100 07/12/18 06:45 07/12/18 06:45 07/12/18 06:45 07/12/18 06:45 07/12/18 06:45 General appearance: Present: mild distress, cachectic, disheveled - EENT Eyes: Present: PERRL, EOM intact - Neck Neck: Present: supple, normal ROM - Respiratory Respiratory effort: normal Respiratory: bilateral: diminished, rhonchi, negative: rales, wheezing - Cardiovascular Rhythm: regular Heart Sounds: Present: S1 & S2 - Extremities Extremities: no ischemia, No edema - Abdominal General gastrointestinal: soft, non-tender, non-distended, normal bowel sounds - Integumentary Integumentary: Present: clear, warm - Psychiatric Psychiatric: appropriate mood/affect, cooperative - Neurologic Neurologic: CNII-XII intact, moves all extremities Results - Labs CBC & Chem 7: 07/12/18 07:40 07/11/18 12:28 Labs: Laboratory Last Values WBC 12.3 K/mm3 (4.5-11.0) H 07/11/18 12:38 RBC 5.33 M/mm3 (3.65-5.03) H 07/11/18 12:38 Hgb 13.3 gm/dl (11.8-15.2) 07/12/18 07:40 Hct 42.8 % (35.5-45.6) 07/12/18 07:40 MCV 72 fl (84-94) L 07/11/18 12:38 MCH 22 pg (28-32) L 07/11/18 12:38 MCHC 31 % (32-34) L 07/11/18 12:38 RDW 30.6 % (13.2-15.2) H 07/11/18 12:38 Plt Count 428 K/mm3 (140-440) 07/11/18 12:38 Add Manual Diff Complete 07/10/18 06:01 Total Counted 100 07/10/18 06:01 Seg Neuts % (Manual) 96.0 % (40.0-70.0) H 07/10/18 06:01 2.0 % 07/10/18 06:01 1.0 % (13.4-35.0) L 07/10/18 06:01 Reactive Lymphs % (Man) 0 % 07/10/18 06:01 1.0 % (0.0-7.3) 07/10/18 06:01 0 % (0.0-4.3) 07/10/18 06:01 0 % (0.0-1.8) 07/10/18 06:01 0 % 07/10/18 06:01 0 % 07/10/18 06:01 0 % 07/10/18 06:01 0 % 07/10/18 06:01 Nucleated RBC % 1.0 % (0.0-0.9) H 07/10/18 06:01 Seg Neutrophils # Man 15.8 K/mm3 (1.8-7.7) H 07/10/18 06:01 Band Neutrophils # 0.3 K/mm3 07/10/18 06:01 0.2 K/mm3 (1.2-5.4) L 07/10/18 06:01 Abs React Lymphs (Man) 0.0 K/mm3 07/10/18 06:01 0.2 K/mm3 (0.0-0.8) 07/10/18 06:01 0.0 K/mm3 (0.0-0.4) 07/10/18 06:01 0.0 K/mm3 (0.0-0.1) 07/10/18 06:01 0.0 K/mm3 07/10/18 06:01 0.0 K/mm3 07/10/18 06:01 0.0 K/mm3 07/10/18 06:01 Blast Cells # 0.0 K/mm3 07/10/18 06:01 WBC Morphology Not Reportable 07/10/18 06:01 Hypersegmented Neuts Not Reportable 07/10/18 06:01 Hyposegmented Neuts Not Reportable 07/10/18 06:01 Hypogranular Neuts Not Reportable 07/10/18 06:01 Not Reportable 07/10/18 06:01 Not Reportable 07/10/18 06:01 Not Reportable 07/10/18 06:01 Not Reportable 07/10/18 06:01 Not Reportable 07/10/18 06:01 Not Reportable 07/10/18 06:01 Consistent w auto 07/10/18 06:01 Not Reportable 07/10/18 06:01 Plt Clumps, EDTA Not Reportable 07/10/18 06:01 Not Reportable 07/10/18 06:01 Not Reportable 07/10/18 06:01 Not Reportable 07/10/18 06:01 Plt Morphology Comment Not Reportable 07/10/18 06:01 RBC Morphology Not Reportable 07/10/18 06:01 Dimorphic RBCs Not Reportable 07/10/18 06:01 Not Reportable 07/10/18 06:01 1+ 07/10/18 06:01 Not Reportable 07/10/18 06:01 2+ 07/10/18 06:01 Not Reportable 07/10/18 06:01 Not Reportable 07/10/18 06:01 Not Reportable 07/10/18 06:01 Not Reportable 07/10/18 06:01 Not Reportable 07/10/18 06:01 Not Reportable 07/10/18 06:01 Not Reportable 07/10/18 06:01 Not Reportable 07/10/18 06:01 Not Reportable 07/10/18 06:01 Not Reportable 07/10/18 06:01 Not Reportable 07/10/18 06:01 Not Reportable 07/10/18 06:01 Not Reportable 07/10/18 06:01 Not Reportable 07/10/18 06:01 Not Reportable 07/10/18 06:01 Acanthocytes (Spur) Not Reportable 07/10/18 06:01 Rouleaux Not Reportable 07/10/18 06:01 Not Reportable 07/10/18 06:01 Not Reportable 07/10/18 06:01 Not Reportable 07/10/18 06:01 Not Reportable 07/10/18 06:01 Hem Pathologist Commnt No 07/10/18 06:01 PT 15.5 Sec. (12.2-14.9) H 07/10/18 08:34 INR 1.16 (0.87-1.13) H 07/10/18 08:34 APTT 35.4 Sec. (24.2-36.6) 07/10/18 08:34 Sodium 137 mmol/L (137-145) 07/11/18 12:28 Potassium 4.1 mmol/L (3.6-5.0) 07/11/18 12:28 Chloride 103.9 mmol/L (98-107) 07/11/18 12:28 Carbon Dioxide 19 mmol/L (22-30) L 07/11/18 12:28 18 mmol/L 07/11/18 12:28 BUN 14 mg/dL (9-20) 07/11/18 12:28 0.6 mg/dL (0.8-1.5) L 07/11/18 12:28 Estimated GFR > 60 ml/min 07/11/18 12:28 23 % 07/11/18 12:28 Glucose 87 mg/dL (75-100) 07/11/18 12:28 Calcium 8.0 mg/dL (8.4-10.2) L 07/11/18 12:28 1.00 mg/dL (0.1-1.2) 07/10/18 06:01 AST 11 units/L (5-40) 07/10/18 06:01 ALT < 5 units/L (7-56) L 07/10/18 06:01 68 units/L (35-129) 07/10/18 06:01 6.2 g/dL (6.3-8.2) L 07/10/18 06:01 2.5 g/dL (3.9-5) L 07/10/18 06:01 0.7 % 07/10/18 06:01 16 units/L (13-60) 07/08/18 13:13 8 U/mL (<34) 07/08/18 16:07 TSH 1.550 mlU/mL (0.270-4.200) 07/08/18 17:22 Free T4 1.17 ng/dL (0.76-1.46) 07/08/18 17:22 Fluid Type Ascitic 07/10/18 Unknown Fluid Color Anita 07/10/18 Unknown Fluid Appearance Cloudy 07/10/18 Unknown Fluid WBC 36 /mm3 07/10/18 Unknown Fluid RBC 47193 /mm3 07/10/18 Unknown Fluid Seg Neutrophils 7.0 % 07/10/18 Unknown Fluid Lymphocytes 50.0 % 07/10/18 Unknown Fluid Reactive Lymphs Not Reportable 07/10/18 Unknown Fluid Monocytes 43.0 % 07/10/18 Unknown Fluid Eosinophils Not Reportable 07/10/18 Unknown Fluid Basophils Not Reportable 07/10/18 Unknown Hepatitis A IgM Ab Non-reactive (NonReactive) 07/10/18 06:01 Hep Bs Antigen Non-reactive (Negative) 07/10/18 06:01 Hep B Core IgM Ab Non-reactive (NonReactive) 07/10/18 06:01 Non-reactive (NonReactive) 07/10/18 06:01 Blood Type A POSITIVE 07/08/18 15:24 Antibody Screen Negative 07/08/18 15:24 Crossmatch See Detail 07/08/18 15:24 Active Medications - Current Medications Current Medications: Generic Name Dose Route Start Last Admin Trade Name Freq PRN Reason Stop Dose Admin Acetaminophen 650 mg 07/08/18 15:52 07/09/18 11:00 Tylenol PO 650 mg Q4H PRN Administration Pain MILD(1-3)/Fever >100.5/SALDAÑA Albuterol 2.5 mg 07/08/18 15:52 Proventil IH Q4HRT PRN Shortness Of Breath Hydromorphone HCl 0.5 mg 07/08/18 19:26 07/09/18 21:05 Dilaudid IV 0.5 mg Q4H PRN Administration pain Multivitamins/Minerals 1 each 07/12/18 10:00 Theragran-M Tab PO QDAY KRISHAN Ondansetron HCl 4 mg 07/08/18 15:52 Zofran IV Q8H PRN Nausea And Vomiting Pantoprazole Sodium 40 mg 07/09/18 12:00 07/11/18 14:02 Protonix PO 40 mg QDAY KRISHAN Administration Sodium Chloride 10 ml 07/08/18 22:00 07/11/18 22:24 Sodium Chloride Flush Syringe 10 Ml IV 10 ml BID KRISHAN Administration Sodium Chloride 10 ml 07/08/18 15:52 Sodium Chloride Flush Syringe 10 Ml IV PRN PRN LINE FLUSH Nutrition/Malnutrition Assess - Dietary Evaluation Nutrition/Malnutrition Findings: Nutrition Notes Start: 07/09/18 14:23 Freq: Status: Active Protocol: Document 07/11/18 16:37 RM (Rec: 07/11/18 16:44 RM [id number]) Nutrition Notes Initial or Follow up Reassessment Other Pertinent Diagnosis Developmental delay, Colon cancer metastasized to liver Current Diet NPO Labs/Tests Reviewed Pertinent Medications Reviewed Height 5 ft 10 in Weight 56.6 kg [place] Body Weight (kg) 75.45 BMI 17.9 Weight change and time frame Current wt obtained from [facility]. Wt change likely d/t fluid change. Subjective/Other Information Pt was NPO this morning from paracentesis yesterday. Clear liquid diet was in place for lunch at time of visit. NPO ordered later today. Pt and pt relative in room. Pt eating lunch at time of visit. Burn Absent Trauma Absent #1 Nutrition Diagnosis Inadequate oral intake Diagnosis Progress(for reassessment Continues documentation) Is patient on ventilator? No Is Patient Ambulatory and/or Out of Bed No REE-([facility]-confined to bed) [phone] Calculation Used for Recommendations [facility] Additional Notes Protein Needs: 82-122g (1-1.5g /kg) Fluid Needs: 1 ml/kcal Nutrition Intervention Change Diet Order: Advance diet when medically able Add Supplement/Snack (indicate name/kcal Ensure Clear 1 daily once diet /protein ) advanced Provides kCal: 240 Provides Protein (gm) 8 Goal #1 Meet at least 75% of calorie and protein needs via PO and ONS intakes Anticipated Discharge Needs: Unable to determine at this time Follow-Up By: 07/15/18 Additional Comments Follow for PO and ONS intakes
[2018-07-12] MEDS: THERAGRAN-M Tab PO SCH (10:58)
[2018-07-12] MEDS: SODIUM CHLORIDE FLUSH SYRINGE 10 ML IV SCH ×2 (10:58→21:55)
[2018-07-12] MEDS: PROTONIX PO SCH (10:58)
[2018-07-12] MEDS ORDERED: NACL 0.9% 1000 ML 1,000 ML IV SCH (13:00)
--- NOTE | 2018-07-12 13:56 | Anesthesia Day of Surgery ---
Anesthesia Day of Surgery - Day of Surgery Patient Examined: Yes Patient H&P Reviewed: Yes Patient is NPO: Yes Beta Blockers: No
--- NOTE | 2018-07-12 13:59 | Anesthesia Consultation ---
Anesthesia Consult and Med Hx Date of service: 07/12/18 - Airway Anesthetic Teeth Evaluation: Poor (missing) - Pulmonary Exam CTA: Yes - Cardiac Exam Cardiac Exam: No Murmur - Pre-Operative Health Status ASA Pre-Surgery Classification: ASA3 Proposed Anesthetic Plan: MAC - Pulmonary Hx Smoking: No (chewing tobacco for years) Hx Respiratory Symptoms: No - Cardiovascular System Hx Hypertension: Yes (but not with this hospitalization : hypotesion sec to blood loss) Hx Heart Attack/AMI: No Hx Cardia Arrhythmia: No - Central Nervous System Hx Neuromuscular Disorder: No Hx Seizures: No Hx Psychiatric Problems: Yes (developmental delay) - Gastrointestinal Hx Gastroesophageal Reflux Disease: No - Endocrine Hx Renal Disease: No Hx Liver Disease: Yes (colon cancer mets to liver) Hx Insulin Dependent Diabetes: No Hx Non-Insulin Dependent Diabetes: No Hx Thyroid Disease: No - Hematic Hx Anemia: Yes - Other Systems Hx Alcohol Use: No Hx Cancer: Yes - Additional Comments Anesthesia Medical History Comments: No GAC, no FHAC
[2018-07-12] MEDS ORDERED: XYLOCAINE 2% INFILTRATI ONE (15:22)
[2018-07-12] MEDS ORDERED: DIPRIVAN 10 MG/ML IV ONE ×3 (15:23)
--- NOTE | 2018-07-12 15:53 | Post Operative Note ---
Pre-op diagnosis: Iron Deficiency Anemia Post-op diagnosis: other (Colon Mass) Findings: 1. Normal upper GI tract 2. Near-obstructing mass in sigmoid colon; endoscope could not pass (incomplete colonoscopy 2nd malignant obstruction) Procedure: EGD and Colonoscopy with cold biopsy Anesthesia: MAC Surgeon: KEMAR ARRIAGA Estimated blood loss: minimal Pathology: list (1. Sigmoid colon mass) Specimen disposition: to lab Condition: stable Disposition: floor (Recs: 1. Given sigmoid mass, and malignant cells in ascites, the patient has Stage IV disease; would recommend a palliative Oncology consult. 2. No evidence of obstruction on CT scan, and with malignant ascites, I would not pursue a resection or diverting ostomy as unlikely to be of long-term benefit.)
--- NOTE | 2018-07-12 16:08 | Operative Report ---
PROCEDURE PERFORMED: Esophagogastroduodenoscopy as well as incomplete colonoscopy with cold biopsy (incomplete colonoscopy secondary to malignant obstruction). ENDOSCOPIST: Paco Ross MD INSTRUMENT: [employer] video endoscope. MEDICATIONS: MAC anesthesia by [facility]esthesia [facility]. COMPLICATIONS: No apparent complications. ESTIMATED BLOOD LOSS: Minimal. SPECIMENS: Sigmoid colon mass. IMPLANTS: None. PASSENGER LOCOMOTIVE ENGINEER: None. CONDITION AT COMPLETION: Stable. TECHNIQUE: The patient's family was informed of the risks and benefits of the procedure. Due to the patient's chronic mental status condition, they provided informed consent. After consent was obtained, he was placed in left lateral decubitus position. The above sedative medications were given. His vital signs remained stable throughout the procedure. The instrument was advanced from the mouth to the second portion of the duodenum under direct visualization. At that point, the bowel was insufflated and the endoscope was slowly withdrawn. The bed was then rotated and the colonoscope was advanced from the anus to the apparent proximal sigmoid colon. At that point in near obstructing mass, highly suspicious for colon cancer, was encountered and the endoscope could not pass. Multiple biopsies were taken, the bowel was then insufflated, and the endoscope was slowly withdrawn. FINDINGS: 1. Normal upper GI tract. 2. Near obstructing mass in the sigmoid colon for preventing passage of the colonoscope into the more proximal region of the colon beyond the sigmoid. A. Multiple cold biopsies were taken and the mass appeared highly suspicious for colon cancer. RECOMMENDATIONS: 1. Given the sigmoid colon mass, and malignant cells and his ascites fluid, the patient has stage IV disease. I would recommend a palliative Oncology consult. 2. No evidence of obstruction on the CT scan and with his malignant ascites, I would not pursue a primary resection or diverting ostomy as unlikely to be of long-term benefit. JOB# [id number] SJ/SHELL
[2018-07-12 21:28] LABS: Hematocrit 41.8 % (35.5-45.6); Hemoglobin 13.1 gm/dl (11.8-15.2)
[2018-07-13 05:19] LABS: Hematocrit 36.9 % (35.5-45.6); Hemoglobin 11.7 gm/dl (11.8-15.2)
[2018-07-13] MEDS: THERAGRAN-M Tab PO SCH (10:40)
[2018-07-13] MEDS: SODIUM CHLORIDE FLUSH SYRINGE 10 ML IV SCH ×2 (10:40→21:35)
[2018-07-13] MEDS: PROTONIX PO SCH (10:40)
--- NOTE | 2018-07-13 11:20 | Progress Note ---
Assessment and Plan Assessment and plan: --Possible Colon cancer metastasized to liver s/p EGD and colonoscopy 1.Normal upper GI tract, 2. Near-obstructing mass in sigmoid colon; endoscope could not pass (incomplete colonoscopy 2nd malignant obstruction) Oncology consulted --Anemia due to GI bleed Monitor CBC, s/p 5 units PRBC Transfusion, supportive care. --Liver mass Could be metastatic lesion, GI consulted, check CEA, CA 19-9, --Ascitis, due to liver mass s/p paracentesis drained 4L fluid, wait for fluid study --Moderate bilateral pleural effusion Right more than left, likely from underlying metastatic disease and hepatitic mass s/p thoracentesis today draoned 900cc fluid --Hyponatremia ;Likely from hypervolemia, improved --Severe malnutrition/hypoalbuminemia; nutrition consult Nutrition supplements and supportive care --DVT prophylaxis SCD to BLE while in bed. Hold anticoagulation for now due to symptomatic anemia. Plan of care reviewed with the patient and his nurse Brief History: Patient is a 58 y/o male with PMH of developmental delay, debility who presented to ED for evaluation of abdominal pain and generalized weakness. Upon admission he was found to be severely anemic with hb 4.4, abd CT showing liver mass with ascites. Family Reports generalized abd pain x 1-2 months with associated decrease in appetite and wt loss (~30lbs). He was admitted for further fibrillation and management. History Interval history: Patient seen and examined medical records reviewed No new events reported by the nursing staff Patient complains of generalized weakness Vital signs noted Hospitalist Physical - Constitutional Vitals: Temp Pulse Resp BP Pulse Ox 97.8 F 60 20 154/82 98 07/13/18 05:27 07/13/18 05:27 07/13/18 05:27 07/13/18 05:27 07/13/18 05:27 General appearance: Present: no acute distress, cachectic, disheveled - EENT Eyes: Present: PERRL, EOM intact - Neck Neck: Present: supple, normal ROM - Respiratory Respiratory effort: normal Respiratory: bilateral: diminished, negative: rales, rhonchi, wheezing - Cardiovascular Rhythm: regular Heart Sounds: Present: S1 & S2 - Extremities Extremities: no ischemia, No edema - Abdominal General gastrointestinal: soft, non-tender, non-distended, normal bowel sounds - Integumentary Integumentary: Present: clear, warm - Psychiatric Psychiatric: appropriate mood/affect, other (confused at times) - Neurologic Neurologic: moves all extremities Results - Labs CBC & Chem 7: 07/13/18 13:18 07/11/18 12:28 Labs: Laboratory Last Values WBC 12.3 K/mm3 (4.5-11.0) H 07/11/18 12:38 RBC 5.33 M/mm3 (3.65-5.03) H 07/11/18 12:38 Hgb 11.7 gm/dl (11.8-15.2) L 07/13/18 04:40 Hct 36.9 % (35.5-45.6) 07/13/18 04:40 MCV 72 fl (84-94) L 07/11/18 12:38 MCH 22 pg (28-32) L 07/11/18 12:38 MCHC 31 % (32-34) L 07/11/18 12:38 RDW 30.6 % (13.2-15.2) H 07/11/18 12:38 Plt Count 428 K/mm3 (140-440) 07/11/18 12:38 Add Manual Diff Complete 07/10/18 06:01 Total Counted 100 07/10/18 06:01 Seg Neuts % (Manual) 96.0 % (40.0-70.0) H 07/10/18 06:01 2.0 % 07/10/18 06:01 1.0 % (13.4-35.0) L 07/10/18 06:01 Reactive Lymphs % (Man) 0 % 07/10/18 06:01 1.0 % (0.0-7.3) 07/10/18 06:01 0 % (0.0-4.3) 07/10/18 06:01 0 % (0.0-1.8) 07/10/18 06:01 0 % 07/10/18 06:01 0 % 07/10/18 06:01 0 % 07/10/18 06:01 0 % 07/10/18 06:01 Nucleated RBC % 1.0 % (0.0-0.9) H 07/10/18 06:01 Seg Neutrophils # Man 15.8 K/mm3 (1.8-7.7) H 07/10/18 06:01 Band Neutrophils # 0.3 K/mm3 07/10/18 06:01 0.2 K/mm3 (1.2-5.4) L 07/10/18 06:01 Abs React Lymphs (Man) 0.0 K/mm3 07/10/18 06:01 0.2 K/mm3 (0.0-0.8) 07/10/18 06:01 0.0 K/mm3 (0.0-0.4) 07/10/18 06:01 0.0 K/mm3 (0.0-0.1) 07/10/18 06:01 0.0 K/mm3 07/10/18 06:01 0.0 K/mm3 07/10/18 06:01 0.0 K/mm3 07/10/18 06:01 Blast Cells # 0.0 K/mm3 07/10/18 06:01 WBC Morphology Not Reportable 07/10/18 06:01 Hypersegmented Neuts Not Reportable 07/10/18 06:01 Hyposegmented Neuts Not Reportable 07/10/18 06:01 Hypogranular Neuts Not Reportable 07/10/18 06:01 Not Reportable 07/10/18 06:01 Not Reportable 07/10/18 06:01 Not Reportable 07/10/18 06:01 Not Reportable 07/10/18 06:01 Not Reportable 07/10/18 06:01 Not Reportable 07/10/18 06:01 Consistent w auto 07/10/18 06:01 Not Reportable 07/10/18 06:01 Plt Clumps, EDTA Not Reportable 07/10/18 06:01 Not Reportable 07/10/18 06:01 Not Reportable 07/10/18 06:01 Not Reportable 07/10/18 06:01 Plt Morphology Comment Not Reportable 07/10/18 06:01 RBC Morphology Not Reportable 07/10/18 06:01 Dimorphic RBCs Not Reportable 07/10/18 06:01 Not Reportable 07/10/18 06:01 1+ 07/10/18 06:01 Not Reportable 07/10/18 06:01 2+ 07/10/18 06:01 Not Reportable 07/10/18 06:01 Not Reportable 07/10/18 06:01 Not Reportable 07/10/18 06:01 Not Reportable 07/10/18 06:01 Not Reportable 07/10/18 06:01 Not Reportable 07/10/18 06:01 Not Reportable 07/10/18 06:01 Not Reportable 07/10/18 06:01 Not Reportable 07/10/18 06:01 Not Reportable 07/10/18 06:01 Not Reportable 07/10/18 06:01 Not Reportable 07/10/18 06:01 Not Reportable 07/10/18 06:01 Not Reportable 07/10/18 06:01 Not Reportable 07/10/18 06:01 Acanthocytes (Spur) Not Reportable 07/10/18 06:01 Rouleaux Not Reportable 07/10/18 06:01 Not Reportable 07/10/18 06:01 Not Reportable 07/10/18 06:01 Not Reportable 07/10/18 06:01 Not Reportable 07/10/18 06:01 Hem Pathologist Commnt No 07/10/18 06:01 PT 15.5 Sec. (12.2-14.9) H 07/10/18 08:34 INR 1.16 (0.87-1.13) H 07/10/18 08:34 APTT 35.4 Sec. (24.2-36.6) 07/10/18 08:34 Sodium 137 mmol/L (137-145) 07/11/18 12:28 Potassium 4.1 mmol/L (3.6-5.0) 07/11/18 12:28 Chloride 103.9 mmol/L (98-107) 07/11/18 12:28 Carbon Dioxide 19 mmol/L (22-30) L 07/11/18 12:28 18 mmol/L 07/11/18 12:28 BUN 14 mg/dL (9-20) 07/11/18 12:28 0.6 mg/dL (0.8-1.5) L 07/11/18 12:28 Estimated GFR > 60 ml/min 07/11/18 12:28 23 % 07/11/18 12:28 Glucose 87 mg/dL (75-100) 07/11/18 12:28 Calcium 8.0 mg/dL (8.4-10.2) L 07/11/18 12:28 1.00 mg/dL (0.1-1.2) 07/10/18 06:01 AST 11 units/L (5-40) 07/10/18 06:01 ALT < 5 units/L (7-56) L 07/10/18 06:01 68 units/L (35-129) 07/10/18 06:01 6.2 g/dL (6.3-8.2) L 07/10/18 06:01 2.5 g/dL (3.9-5) L 07/10/18 06:01 0.7 % 07/10/18 06:01 16 units/L (13-60) 07/08/18 13:13 Carcinoembryonic Ag See scanned result 07/08/18 16:07 8 U/mL (<34) 07/08/18 16:07 TSH 1.550 mlU/mL (0.270-4.200) 07/08/18 17:22 Free T4 1.17 ng/dL (0.76-1.46) 07/08/18 17:22 Fluid Type Ascitic 07/10/18 Unknown Fluid Color Anita 07/10/18 Unknown Fluid Appearance Cloudy 07/10/18 Unknown Fluid WBC 36 /mm3 07/10/18 Unknown Fluid RBC 48406 /mm3 07/10/18 Unknown Fluid Seg Neutrophils 7.0 % 07/10/18 Unknown Fluid Lymphocytes 50.0 % 07/10/18 Unknown Fluid Reactive Lymphs Not Reportable 07/10/18 Unknown Fluid Monocytes 43.0 % 07/10/18 Unknown Fluid Eosinophils Not Reportable 07/10/18 Unknown Fluid Basophils Not Reportable 07/10/18 Unknown Hepatitis A IgM Ab Non-reactive (NonReactive) 07/10/18 06:01 Hep Bs Antigen Non-reactive (Negative) 07/10/18 06:01 Hep B Core IgM Ab Non-reactive (NonReactive) 07/10/18 06:01 Non-reactive (NonReactive) 07/10/18 06:01 Blood Type A POSITIVE 07/08/18 15:24 Antibody Screen Negative 07/08/18 15:24 Crossmatch See Detail 07/08/18 15:24 Active Medications - Current Medications Current Medications: Generic Name Dose Route Start Last Admin Trade Name Freq PRN Reason Stop Dose Admin Acetaminophen 650 mg 07/08/18 15:52 07/09/18 11:00 Tylenol PO 650 mg Q4H PRN Administration Pain MILD(1-3)/Fever >100.5/SALDAÑA Albuterol 2.5 mg 07/08/18 15:52 Proventil IH Q4HRT PRN Shortness Of Breath Hydromorphone HCl 0.5 mg 07/08/18 19:26 07/09/18 21:05 Dilaudid IV 0.5 mg Q4H PRN Administration pain Multivitamins/Minerals 1 each 07/12/18 10:00 07/13/18 10:40 Theragran-M Tab PO 1 each QDAY KRISHAN Administration Ondansetron HCl 4 mg 07/08/18 15:52 Zofran IV Q8H PRN Nausea And Vomiting Pantoprazole Sodium 40 mg 07/09/18 12:00 07/13/18 10:40 Protonix PO 40 mg QDAY KRISHAN Administration Sodium Chloride 10 ml 07/08/18 22:00 07/13/18 10:40 Sodium Chloride Flush Syringe 10 Ml IV 10 ml BID KRISHAN Administration Sodium Chloride 10 ml 07/08/18 15:52 Sodium Chloride Flush Syringe 10 Ml IV PRN PRN LINE FLUSH Nutrition/Malnutrition Assess - Dietary Evaluation Nutrition/Malnutrition Findings: Nutrition Notes Start: 07/09/18 14:23 Freq: Status: Active Protocol: Document 07/11/18 16:37 RM (Rec: 07/11/18 16:44 RM [id number]) Nutrition Notes Initial or Follow up Reassessment Other Pertinent Diagnosis Developmental delay, Colon cancer metastasized to liver Current Diet NPO Labs/Tests Reviewed Pertinent Medications Reviewed Height 5 ft 10 in Weight 56.6 kg [place] Body Weight (kg) 75.45 BMI 17.9 Weight change and time frame Current [facility]. Wt change likely d/t fluid change. Subjective/Other Information Pt was NPO this morning from paracentesis yesterday. Clear liquid diet was in place for lunch at time of visit. NPO ordered later today. Pt and pt relative in room. Pt eating lunch at time of visit. Burn Absent Trauma Absent #1 Nutrition Diagnosis Inadequate oral intake Diagnosis Progress(for reassessment Continues documentation) Is patient on ventilator? No Is Patient Ambulatory and/or Out of Bed No REE-([facility]-confined to bed) [phone] Calculation Used for Recommendations [facility] Additional Notes Protein Needs: 82-122g (1-1.5g /kg) Fluid Needs: 1 ml/kcal Nutrition Intervention Change Diet Order: Advance diet when medically able Add Supplement/Snack (indicate name/kcal Ensure Clear 1 daily once diet /protein ) advanced Provides kCal: 240 Provides Protein (gm) 8 Goal #1 Meet at least 75% of calorie and protein needs via PO and ONS intakes Anticipated Discharge Needs: Unable to determine at this time Follow-Up By: 07/15/18 Additional Comments Follow for PO and ONS intakes
[2018-07-13 14:21] LABS: Hematocrit 39.4 % (35.5-45.6); Hemoglobin 11.9 gm/dl (11.8-15.2)
--- NOTE | 2018-07-13 15:09 | Gastroenterology Progress Note ---
Assessment and Plan - Patient Problems (1) Colon carcinoma metastatic to mesenteric region Current Visit: Yes Status: Acute Plan to address problem: - Colonoscopy 07/12 with large sigmoid mass (biopsies pending); patient also has liver lesions, and (+) malignant cells in ascites/pleural fluid (Stage IV). - Prognosis would be considered very guarded, as I discussed with the sister at endoscopy yesterday. - Will await Oncology consult for treatment options for the family. Subjective Date of service: 07/13/18 Principal diagnosis: Colon Cancer Interval history: The patient has a poor appetite. He has no vomiting but is taking in very little. He denies pain. No family available in the room. Objective - Constitutional Vitals: Temp Pulse Resp BP Pulse Ox 97.8 F 64 14 144/68 99 07/13/18 11:49 07/13/18 11:49 07/13/18 11:49 07/13/18 11:49 07/13/18 11:49 General appearance: no acute distress - Respiratory Respiratory effort: normal Respiratory: bilateral: CTA - Cardiovascular Rhythm: regular Heart Sounds: Present: S1 & S2 - Gastrointestinal General gastrointestinal: Present: soft, tender (Minimal), distended (Mild) - Labs CBC & Chem 7: 07/13/18 13:18 07/11/18 12:28 Labs: Laboratory Results - last 24 hr 07/12/18 07/13/18 07/13/18 21:11 04:40 13:18 Hgb 13.1 11.7 L 11.9 Hct 41.8 36.9 39.4
--- NOTE | 2018-07-13 15:51 | Event Note ---
Date: 07/13/18 [id number]
--- NOTE | 2018-07-13 17:55 | Cat Scan Report ---
PROCEDURE: CT CHEST W CON TECHNIQUE: Following administration of IV contrast axial helical imaging was performed through the c hest with sagittal reformatted images obtained. HISTORY: colon ca - pl effusion COMPARISONS: Chest x-ray dated July 08, 2018 FINDINGS: There is a large right pleural fluid collection and moderate sized left pleural fluid collection with associated compressive atelectasis in the adjacent lung. The heart is enlarged. The thoracic aorta is normal caliber. There is no evidence of intrathoracic adenopathy. There are filling defects in the left upper lobe and lower lobe segmental pulmonary artery consistent with pulmonary artery emboli. The visualized portions of the upper abdomen is notable for a large amount of free fluid in the upper abdomen. The bony structures are notable for the appearance of lytic change in the posterior aspect of the rig ht third ribs suggestive of bone metastasis. IMPRESSION: 1. Large right pleural fluid collection and moderate sized left pleural fluid collection with [facility] compressive atelectasis in the adjacent lungs. 2. Cardiomegaly. 3. Segmental pulmonary artery emboli left upper and lower lobes. 4. Findings suggestive of bony metastasis posterior aspect right third rib. The finding of pulmonary artery emboli were reported to the patient's nurse, IRVING Pascual, at 5:50 PM July 13, 2018. This document is electronically signed by Crystal Souza MD., Jul 13 2018 05:53:15 PM ET
--- NOTE | 2018-07-13 18:03 | Cat Scan Report ---
PROCEDURE: CT HEAD/BRAIN without & with contrast TECHNIQUE: Pre and postcontrast axial helical imaging was performed through the brain. HISTORY: h/o colon cancer COMPARISONS: Noncontrast head CT also performed today. The report of that study is not available for review at the time of this dictation. FINDINGS: There are areas of decreased density in the cortex and subcortical white matter of the right frontal, parietal and temporal lobes and areas of decreased density in the right basal ganglia with a mild de gree of mass effect. These are consistent with areas of acute infarct in the right middle cerebral ar angel and somewhat watershed distribution. There is evidence of areas of intravascular and cortical enhancement in the areas of infarct consiste nt with acute stroke. There are no other areas of abnormal intracranial enhancement and no evidence of intracranial mass. There is no evidence of intracranial hemorrhage. The ventricles are normal size. The visualized portions of the orbits, paranasal and mastoid sinuses are unremarkable. The bony structures are unremarkable. IMPRESSION: 1. Evidence of areas of acute cortical infarct in the right frontal, temporal and parietal lobes and acute infarcts in the right basal ganglia. The multiplicity of infarcts is suggestive of an embolic e tiology. The finding of acute infarcts was reported to the patient's nurse, IRVING Pascual at 6:00 PM Ma 2018. This document is electronically signed by Crystal Souza MD., Jul 13 2018 06:01:32 PM ET
--- NOTE | 2018-07-13 18:31 | Event Note ---
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 Tony I'm unable to reach Ms. Tony, , left message asking her to call back to discuss patient's condition CODE STATUS;Full code Critical care time 35 minutes
--- NOTE | 2018-07-13 20:21 | Consultation ---
REFERRING PHYSICIAN: Fernando Diego MD/Lisa Tapia MD REASON FOR CONSULTATION: Colon mass, liver lesion. HISTORY OF PRESENT ILLNESS: I saw the patient, a 58-year-old male in the medical floor. I spoke to the patient's sister who gave me some history. The patient was admitted on 07/08/2018. As per the information available in the medical notes, the patient has a history of developmental delay, has a history of 30-pound weight loss over the last few months, decreased oral intake. At admission, hemoglobin was 4.4, he received transfusion support. He was seen by GI team. Radiology showed lesion in the liver, which is 8 cm. There is also a large amount of ascites. GI team's report mentions sigmoid mass. Pathology of the ascites specimen on 07/10/2018 shows highly suspicious for a malignant tumor. REVIEW OF SYSTEMS: At this time, it is not reliable. Patient is not able to give a good history. History of loss of weight as per information. History of abdominal pain. Was found to be anemic. Lives alone. Mention of having some mental impairment, developmental disability. PAST SURGICAL HISTORY: None. SOCIAL HISTORY: No history of tobacco or alcohol use. FAMILY HISTORY: Hypertension. ALLERGIES: None. PRESENT MEDICATIONS: Include Dilaudid, which was given on 07/09/2018. PHYSICAL EXAMINATION: VITAL SIGNS: Temperature 97, pulse 64, respirations 14, BP 144/68. HEENT: Mild pallor, no icterus. NECK: No neck lymph nodes. HEART: S1, S2. LUNGS: Decreased air entry. ABDOMEN: Soft, slight distention present. EXTREMITIES: No calf tenderness. NEUROLOGIC: Awake. LABORATORY DATA: White cell 12, hemoglobin 11.9, MCV 72, platelet 428. At admission, hemoglobin was 4.4, creatinine 0.6, potassium 4.1, calcium 8, bilirubin 1. AST, ALT normal. Radiology mentions liver lesions, ascites. Pathology, malignant cells in ascites. Colonoscopy, sigmoid mass. ASSESSMENT AND PLAN: 1. Likely stage 4 colon cancer with ascites, liver lesions. 2. CEA is elevated in the 90s. 3. Anemia secondary to iron deficiency. MCV is low, status post transfusion. 4. The patient lives alone, but there is developmental disability. As per the sister, he was able to manage on his own. At this time, he is not able to give a good history, so his mentation evaluation is difficult. 5. His mentation/developmental disability will help us decide regarding the treatment options. He is young, but this is a stage 4 cancer based on clinical scenario and the treatment is non-curative and palliative. We will look into doing a CT head to see why his mentation is as this. I will follow the patient during inpatient stay. JOB# [id number] MDITRI/SHELL
[2018-07-13] MEDS: KEPPRA 500 MG in D5W 100 ML IV SCH (21:35)
[2018-07-13 22:57] LABS: Hematocrit 35.7 % (35.5-45.6); Hemoglobin 11.1 gm/dl (11.8-15.2)
[2018-07-14 05:25] LABS: Hematocrit 35.6 % (35.5-45.6); Hemoglobin 11.1 gm/dl (11.8-15.2); Mean Corpuscular HGB Conc 31 % (32-34); Mean Corpuscular Volume 73 fl (84-94); Platelet Count 348 K/mm3 (140-440); Red Blood Count 4.86 M/mm3 (3.65-5.03); Red Cell Distribution Width 31.1 % (13.2-15.2)
[2018-07-14 06:20] LABS: Basophils % (Manual) 0 % (0.0-1.8); Eosinophils % (Manual) 0 % (0.0-4.3); Total Cells Counted 100
[2018-07-14 06:21] LABS: Anisocytosis 1+; Hypochromasia 2+; Large Platelets 1+; Ovalocytes 1+; Platelet Estimate Consistent w Auto
[2018-07-14 06:42] LABS: Albumin 2.5 g/dL (3.9-5); BUN/Creatinine Ratio 17; Blood Urea Nitrogen 10 mg/dL (9-20); Calcium 8.2 mg/dL (8.4-10.2); Chol/HDL Ratio 4.34 %; HDL Cholesterol 29 mg/dL (40-59); Hemolysis Index 0; Iron 16 ug/dL (49-181); LDL Cholesterol,Direct 93 mg/dL (50-130)
[2018-07-14 06:43] LABS: Total Iron Binding Capacity 221 mcg/dL (250-450)
[2018-07-14 06:44] LABS: Alanine Aminotransferase < 5 units/L (7-56)
--- NOTE | 2018-07-14 08:06 | Progress Note ---
Subjective Date of service: 07/14/18 Principal diagnosis: Colon Cancer Interval history: spoke with Dr. Vidal last evening and went over the case totally... I have esonally checked the CT and there is new ischemic infarct in the right frontal/ temporal/ parietal lobe rec medical therapy ad not safe for full heparin therapy would use only the heparin prophyxis doses for PE under the circumstances in addition risk of suystemic bleeding with low Hmct and cancer as ell obviates against full heparin therapy or NCOAC class meds ... will need to pin down etiology of stroke with MRA Objective - Vital Sign Vital Signs - 12hr 07/13/18 07/13/18 07/14/18 20:48 22:23 05:23 Temperature 97.7 F 98.3 F Pulse Rate 63 59 L Respiratory 20 20 Rate Blood Pressure 158/79 158/78 O2 Sat by Pulse 100 100 99 Oximetry - Laboratory Findings CBC and BMP: 07/14/18 04:47 07/14/18 04:47 Abnormal Lab Findings: Abnormal Labs 07/08/18 07/08/18 07/08/18 13:13 14:03 15:24 WBC RBC 2.99 L Hgb 4.4 L* Hct 17.3 L* MCV 58 L MCH 15 L MCHC 26 L RDW 23.2 H Plt Count 899 H Seg Neuts % (Manual) Lymphocytes % (Manual) Monocytes % (Manual) 9.0 H Nucleated RBC % Seg Neutrophils # Man Lymphocytes # (Manual) PT INR Sodium 135 L Carbon Dioxide 20 L Creatinine 0.6 L Calcium Iron TIBC ALT < 5 L Total Protein Albumin 3.1 L HDL Cholesterol Crossmatch See Detail 07/09/18 07/10/18 07/10/18 07:42 06:01 06:01 WBC 16.5 H RBC Hgb 7.5 L D 10.0 L Hct 25.1 L D 31.7 L D MCV 68 L 72 L MCH 20 L 23 L MCHC 30 L RDW 32.0 H 29.0 H Plt Count 584 H Seg Neuts % (Manual) 96.0 H Lymphocytes % (Manual) 1.0 L Monocytes % (Manual) Nucleated RBC % 1.0 H Seg Neutrophils # Man 15.8 H Lymphocytes # (Manual) 0.2 L PT INR Sodium 135 L Carbon Dioxide 19 L Creatinine 0.6 L Calcium 8.0 L Iron TIBC ALT < 5 L Total Protein 6.2 L Albumin 2.5 L HDL Cholesterol Crossmatch 07/10/18 07/11/18 07/11/18 08:34 12:28 12:38 WBC 12.3 H RBC 5.33 H Hgb Hct MCV 72 L MCH 22 L MCHC 31 L RDW 30.6 H Plt Count Seg Neuts % (Manual) Lymphocytes % (Manual) Monocytes % (Manual) Nucleated RBC % Seg Neutrophils # Man Lymphocytes # (Manual) PT 15.5 H INR 1.16 H Sodium Carbon Dioxide 19 L Creatinine 0.6 L Calcium 8.0 L Iron TIBC ALT Total Protein Albumin HDL Cholesterol Crossmatch 07/13/18 07/13/18 07/14/18 04:40 22:46 04:47 WBC RBC Hgb 11.7 L 11.1 L Hct MCV MCH MCHC RDW Plt Count Seg Neuts % (Manual) Lymphocytes % (Manual) Monocytes % (Manual) Nucleated RBC % Seg Neutrophils # Man Lymphocytes # (Manual) PT INR Sodium 136 L Carbon Dioxide Creatinine 0.6 L Calcium 8.2 L Iron 16 L TIBC 221 L ALT < 5 L Total Protein 5.9 L Albumin 2.5 L HDL Cholesterol 29 L Crossmatch 07/14/18 04:47 WBC RBC Hgb 11.1 L Hct MCV 73 L MCH 23 L MCHC 31 L RDW 31.1 H Plt Count Seg Neuts % (Manual) 83.0 H Lymphocytes % (Manual) 12.0 L Monocytes % (Manual) Nucleated RBC % Seg Neutrophils # Man Lymphocytes # (Manual) 0.9 L PT INR Sodium Carbon Dioxide Creatinine Calcium Iron TIBC ALT Total Protein Albumin HDL Cholesterol Crossmatch
--- NOTE | 2018-07-14 09:33 | Vascular Lab Report ---
PROCEDURE: VL VENOUS DUPLEX LE BILAT TECHNIQUE: Duplex Doppler sonography of the BILATERAL lower extremities. Mcpherson scale imaging with and without compression, spectral waveform analysis with and without augmentation, and color flow Dopple r were employed. HISTORY: PE, evaluate for DVT for possible IVC filter COMPARISONS: None FINDINGS: RIGHT LOWER EXTREMITY: Deep Venous Thrombus: There is echogenic thrombus within the right upper superficial femoral vein . Superficial Venous Thrombus: None Venous valvular incompetence: None Soft tissue abnormality: None LEFT LOWER EXTREMITY: Deep Venous Thrombus: There is echogenic thrombus in the left common femoral vein, upper superficial femoral vein, and profunda branch. Superficial Venous Thrombus: None Venous valvular incompetence: None Soft tissue abnormality: None IMPRESSION: Deep venous thrombosis of the right upper superficial femoral vein. Deep venous thrombosis of the left common femoral vein, upper superficial femoral vein, and profunda branch. Findings were discussed with Dr. Tapia at 9:30 AM, Eastern standard time, on 07/14/2018. This document is electronically signed by Sofya Ruiz MD., Jul 14 2018 09:30:41 AM ET
--- NOTE | 2018-07-14 09:36 | Progress Note ---
Assessment and Plan Assessment and plan: --Acute pulmonary embolism; contraindication for anticoagulation In view of acute CVA, severe anemia requiring multiple units of PRBC --Acute bilateral lower extremity DVT; contraindication for anticoagulation due to about reasons IVC filter placement, discussed with Dr. Skaggs, IVC filter placement tomorrow --Acute CVA; not a candidate for TPA, cautious aspirin, monitor for any bleeding Statin, neurology following --Stage IV Colon cancer metastasized to liver s/p EGD and colonoscopy 1.Normal upper GI tract, 2. Near-obstructing mass in sigmoid colon; endoscope could not pass (incomplete colonoscopy 2nd malignant obstruction) Oncology consulted --Anemia due to GI bleed Monitor CBC, s/p 5 units PRBC Transfusion, supportive care. --Liver mass Could be metastatic lesion, GI consulted, check CEA, CA 19-9, --Ascitis, due to liver mass s/p paracentesis drained 4L fluid, wait for fluid study --Moderate bilateral pleural effusion Right more than left, likely from underlying metastatic disease and hepatitic mass s/p thoracentesis today draoned 900cc fluid --Hyponatremia ;Likely from hypervolemia, improved --Severe malnutrition/hypoalbuminemia; nutrition consult Nutrition supplements and supportive care --DVT prophylaxis SCD to BLE while in bed. Hold anticoagulation for now due to symptomatic anemia. Plan of care reviewed with the patient and his nurse Very poor prognosis with multiple problems Family not available Recommend palliative care/hospice Critical care time 32 minutes History Interval history: Patient seen and examined medical records reviewed Unable to contact any family Patient has positive lower extremity DVT, discussed with INR Dr. Skaggs Possible IVC filter placement tomorrow Patient is lethargic and minimally communicative Vital signs noted Hospitalist Physical - Constitutional Vitals: Temp Pulse Resp BP Pulse Ox 98.3 F 59 L 20 158/78 99 07/14/18 05:23 07/14/18 05:23 07/14/18 05:23 07/14/18 05:23 07/14/18 05:23 General appearance: Present: mild distress, cachectic, disheveled - EENT Eyes: Present: PERRL, EOM intact - Neck Neck: Present: supple, normal ROM - Respiratory Respiratory effort: normal Respiratory: bilateral: diminished, rhonchi, negative: rales - Cardiovascular Rhythm: regular Heart Sounds: Present: S1 & S2 - Extremities Extremities: abnormal (bilateral lower extremity DVT) Extremity abnormal: edema - Abdominal General gastrointestinal: soft, non-tender, non-distended, normal bowel sounds, mass - Integumentary Integumentary: Present: clear, warm - Psychiatric Psychiatric: other (minimally communicative confused at times) - Neurologic Neurologic: other (residual weakness) Results - Labs CBC & Chem 7: 07/14/18 04:47 07/14/18 04:47 Labs: Laboratory Last Values WBC 7.8 K/mm3 (4.5-11.0) 07/14/18 04:47 RBC 4.86 M/mm3 (3.65-5.03) 07/14/18 04:47 Hgb 11.1 gm/dl (11.8-15.2) L 07/14/18 04:47 Hct 35.6 % (35.5-45.6) 07/14/18 04:47 MCV 73 fl (84-94) L 07/14/18 04:47 MCH 23 pg (28-32) L 07/14/18 04:47 MCHC 31 % (32-34) L 07/14/18 04:47 RDW 31.1 % (13.2-15.2) H 07/14/18 04:47 Plt Count 348 K/mm3 (140-440) 07/14/18 04:47 Add Manual Diff Complete 07/14/18 04:47 Total Counted 100 07/14/18 04:47 Seg Neuts % (Manual) 83.0 % (40.0-70.0) H 07/14/18 04:47 0 % 07/14/18 04:47 12.0 % (13.4-35.0) L 07/14/18 04:47 Reactive Lymphs % (Man) 0 % 07/14/18 04:47 5.0 % (0.0-7.3) 07/14/18 04:47 0 % (0.0-4.3) 07/14/18 04:47 0 % (0.0-1.8) 07/14/18 04:47 0 % 07/14/18 04:47 0 % 07/14/18 04:47 0 % 07/14/18 04:47 0 % 07/14/18 04:47 Nucleated RBC % Not Reportable 07/14/18 04:47 Seg Neutrophils # Man 6.5 K/mm3 (1.8-7.7) 07/14/18 04:47 Band Neutrophils # 0.0 K/mm3 07/14/18 04:47 0.9 K/mm3 (1.2-5.4) L 07/14/18 04:47 Abs React Lymphs (Man) 0.0 K/mm3 07/14/18 04:47 0.4 K/mm3 (0.0-0.8) 07/14/18 04:47 0.0 K/mm3 (0.0-0.4) 07/14/18 04:47 0.0 K/mm3 (0.0-0.1) 07/14/18 04:47 0.0 K/mm3 07/14/18 04:47 0.0 K/mm3 07/14/18 04:47 0.0 K/mm3 07/14/18 04:47 Blast Cells # 0.0 K/mm3 07/14/18 04:47 WBC Morphology Not Reportable 07/14/18 04:47 WBC Morphology TNR 07/14/18 04:47 Hypersegmented Neuts Not Reportable 07/14/18 04:47 Hyposegmented Neuts Not Reportable 07/14/18 04:47 Hypogranular Neuts Not Reportable 07/14/18 04:47 Not Reportable 07/14/18 04:47 Not Reportable 07/14/18 04:47 Not Reportable 07/14/18 04:47 Not Reportable 07/14/18 04:47 Not Reportable 07/14/18 04:47 Not Reportable 07/14/18 04:47 Consistent w auto 07/14/18 04:47 Not Reportable 07/14/18 04:47 Plt Clumps, EDTA Not Reportable 07/14/18 04:47 1+ 07/14/18 04:47 Not Reportable 07/14/18 04:47 Not Reportable 07/14/18 04:47 Plt Morphology Comment Not Reportable 07/14/18 04:47 RBC Morphology Not Reportable 07/14/18 04:47 Dimorphic RBCs Not Reportable 07/14/18 04:47 Not Reportable 07/14/18 04:47 2+ 07/14/18 04:47 Not Reportable 07/14/18 04:47 1+ 07/14/18 04:47 Not Reportable 07/14/18 04:47 Not Reportable 07/14/18 04:47 Not Reportable 07/14/18 04:47 Not Reportable 07/14/18 04:47 Not Reportable 07/14/18 04:47 Not Reportable 07/14/18 04:47 Not Reportable 07/14/18 04:47 1+ 07/14/18 04:47 Not Reportable 07/14/18 04:47 Not Reportable 07/14/18 04:47 Not Reportable 07/14/18 04:47 Not Reportable 07/14/18 04:47 Not Reportable 07/14/18 04:47 Not Reportable 07/14/18 04:47 1+ 07/14/18 04:47 Acanthocytes (Spur) Not Reportable 07/14/18 04:47 Rouleaux Not Reportable 07/14/18 04:47 Not Reportable 07/14/18 04:47 Not Reportable 07/14/18 04:47 Not Reportable 07/14/18 04:47 Not Reportable 07/14/18 04:47 Hem Pathologist Commnt No 07/14/18 04:47 PT 15.5 Sec. (12.2-14.9) H 07/10/18 08:34 INR 1.16 (0.87-1.13) H 07/10/18 08:34 APTT 35.4 Sec. (24.2-36.6) 07/10/18 08:34 Sodium 136 mmol/L (137-145) L 07/14/18 04:47 Potassium 3.8 mmol/L (3.6-5.0) 07/14/18 04:47 Chloride 102.1 mmol/L (98-107) 07/14/18 04:47 Carbon Dioxide 23 mmol/L (22-30) 07/14/18 04:47 15 mmol/L 07/14/18 04:47 BUN 10 mg/dL (9-20) 07/14/18 04:47 0.6 mg/dL (0.8-1.5) L 07/14/18 04:47 Estimated GFR > 60 ml/min 07/14/18 04:47 17 % 07/14/18 04:47 Glucose 90 mg/dL (75-100) 07/14/18 04:47 Calcium 8.2 mg/dL (8.4-10.2) L 07/14/18 04:47 Iron 16 ug/dL (49-181) L 07/14/18 04:47 TIBC 221 mcg/dL (250-450) L 07/14/18 04:47 137.5 ng/mL (13.0-400.0) 07/14/18 04:47 0.40 mg/dL (0.1-1.2) 07/14/18 04:47 AST 13 units/L (5-40) 07/14/18 04:47 ALT < 5 units/L (7-56) L 07/14/18 04:47 55 units/L (35-129) 07/14/18 04:47 5.9 g/dL (6.3-8.2) L 07/14/18 04:47 2.5 g/dL (3.9-5) L 07/14/18 04:47 0.7 % 07/14/18 04:47 Triglycerides 78 mg/dL (2-149) 07/14/18 04:47 Cholesterol 126 mg/dL (50-199) 07/14/18 04:47 93 mg/dL (50-130) 07/14/18 04:47 29 mg/dL (40-59) L 07/14/18 04:47 4.34 % 07/14/18 04:47 16 units/L (13-60) 07/08/18 13:13 Carcinoembryonic Ag See scanned result 07/08/18 16:07 8 U/mL (<34) 07/08/18 16:07 TSH 1.550 mlU/mL (0.270-4.200) 07/08/18 17:22 Free T4 1.17 ng/dL (0.76-1.46) 07/08/18 17:22 Fluid Type Ascitic 07/10/18 Unknown Fluid Color Anita 07/10/18 Unknown Fluid Appearance Cloudy 07/10/18 Unknown Fluid WBC 36 /mm3 07/10/18 Unknown Fluid RBC 21851 /mm3 07/10/18 Unknown Fluid Seg Neutrophils 7.0 % 07/10/18 Unknown Fluid Lymphocytes 50.0 % 07/10/18 Unknown Fluid Reactive Lymphs Not Reportable 07/10/18 Unknown Fluid Monocytes 43.0 % 07/10/18 Unknown Fluid Eosinophils Not Reportable 07/10/18 Unknown Fluid Basophils Not Reportable 07/10/18 Unknown Hepatitis A IgM Ab Non-reactive (NonReactive) 07/10/18 06:01 Hep Bs Antigen Non-reactive (Negative) 07/10/18 06:01 Hep B Core IgM Ab Non-reactive (NonReactive) 07/10/18 06:01 Non-reactive (NonReactive) 07/10/18 06:01 Blood Type A POSITIVE 07/08/18 15:24 Antibody Screen Negative 07/08/18 15:24 Crossmatch See Detail 07/08/18 15:24 Active Medications - Current Medications Current Medications: Generic Name Dose Route Start Last Admin Trade Name Freq PRN Reason Stop Dose Admin Acetaminophen 650 mg 07/08/18 15:52 07/09/18 11:00 Tylenol PO 650 mg Q4H PRN Administration Pain MILD(1-3)/Fever >100.5/SALDAÑA Albuterol 2.5 mg 07/08/18 15:52 Proventil IH Q4HRT PRN Shortness Of Breath Aspirin 325 mg 07/14/18 10:00 Aspirin PO QDAY KRISHAN Atorvastatin Calcium 40 mg 07/13/18 22:00 07/13/18 21:35 Lipitor PO 40 mg QHS KRISHAN Administration Hydromorphone HCl 0.5 mg 07/08/18 19:26 07/09/18 21:05 Dilaudid IV 0.5 mg Q4H PRN Administration pain Levetiracetam 500 mg/ Dextrose 105 mls @ 400 mls/hr 07/13/18 22:00 07/13/18 21:35 IV 400 mls/hr Q12HR KRISHAN Administration Multivitamins/Minerals 1 each 07/12/18 10:00 07/13/18 10:40 Theragran-M Tab PO 1 each QDAY KRISHAN Administration Ondansetron HCl 4 mg 07/08/18 15:52 Zofran IV Q8H PRN Nausea And Vomiting Pantoprazole Sodium 40 mg 07/09/18 12:00 07/13/18 10:40 Protonix PO 40 mg QDAY KRISHAN Administration Sodium Chloride 10 ml 07/08/18 22:00 07/13/18 21:35 Sodium Chloride Flush Syringe 10 Ml IV 10 ml BID KRISHAN Administration Sodium Chloride 10 ml 07/08/18 15:52 Sodium Chloride Flush Syringe 10 Ml IV PRN PRN LINE FLUSH Nutrition/Malnutrition Assess - Dietary Evaluation Nutrition/Malnutrition Findings: Nutrition Notes Start: 07/09/18 14:23 Freq: Status: Active Protocol: Document 07/11/18 16:37 RM (Rec: 07/11/18 16:44 RM [id number]) Nutrition Notes Initial or Follow up Reassessment Other Pertinent Diagnosis Developmental delay, Colon cancer metastasized to liver Current Diet NPO Labs/Tests Reviewed Pertinent Medications Reviewed Height 5 ft 10 in Weight 56.6 kg [place] Body Weight (kg) 75.45 BMI 17.9 Weight change and time frame [facility] Wt change likely d/t fluid change. Subjective/Other Information Pt was NPO this morning from paracentesis yesterday. Clear liquid diet was in place for lunch at time of visit. NPO ordered later today. Pt and pt relative in room. Pt eating lunch at time of visit. Burn Absent Trauma Absent #1 Nutrition Diagnosis Inadequate oral intake Diagnosis Progress(for reassessment Continues documentation) Is patient on ventilator? No Is Patient Ambulatory and/or Out of Bed No REE-([facility]-confined to bed) [phone] Recommendations [facility] Additional Notes Protein Needs: 82-122g (1-1.5g /kg) Fluid Needs: 1 ml/kcal Nutrition Intervention Change Diet Order: Advance diet when medically able Add Supplement/Snack (indicate name/kcal Ensure Clear 1 daily once diet /protein ) advanced Provides kCal: 240 Provides Protein (gm) 8 Goal #1 Meet at least 75% of calorie and protein needs via PO and ONS intakes Anticipated Discharge Needs: Unable to determine at this time Follow-Up By: 07/15/18 Additional Comments Follow for PO and ONS intakes
[2018-07-14] MEDS: THERAGRAN-M Tab PO SCH (10:19)
[2018-07-14] MEDS: SODIUM CHLORIDE FLUSH SYRINGE 10 ML IV SCH ×2 (10:19→22:06)
[2018-07-14] MEDS: PROTONIX PO SCH (10:19)
[2018-07-14] MEDS: ASPIRIN PO SCH (10:19)
[2018-07-14] MEDS: KEPPRA 500 MG in D5W 100 ML IV SCH ×2 (10:19→22:05)
--- NOTE | 2018-07-14 10:24 | Progress Note ---
Assessment and Plan The patient will need to be scheduled for IVC filter placement as he is unable to anticoagulate secondary to new CVAs. Additionally, would recommend cardiac consult to rule out embolic phenomenon. The patient will need tunneled right chest tube for palliative care in the midportion of next week. Subjective Date of service: 07/14/18 Principal diagnosis: Colon Cancer Interval history: Patient with a complex medical history including their obstructing colon cancer, metastatic disease, recurrent right pleural and ascitic fluid. Patient is now noted to have multiple CVAs suggesting embolic phenomenon. In addition, the patient has bilateral lower extremity DVTs as well as small segmental pulmonary emboli. Objective - Constitutional Vitals: Vital Signs - 12hr 07/13/18 07/14/18 22:23 05:23 Temperature 97.7 F 98.3 F Pulse Rate 63 59 L Respiratory 20 20 Rate Blood Pressure 158/79 158/78 O2 Sat by Pulse 100 99 Oximetry - Labs CBC & Chem 7: 07/14/18 04:47 07/14/18 04:47 Labs: Abnormal lab results 07/13/18 07/14/18 07/14/18 Range/Units 22:46 04:47 04:47 Hgb 11.1 L 11.1 L (11.8-15.2) gm/dl MCV 73 L (84-94) fl MCH 23 L (28-32) pg MCHC 31 L (32-34) % RDW 31.1 H (13.2-15.2) % Seg Neuts % (Manual) 83.0 H (40.0-70.0) % Lymphocytes % (Manual) 12.0 L (13.4-35.0) % Lymphocytes # (Manual) 0.9 L (1.2-5.4) K/mm3 Sodium 136 L (137-145) mmol/L Creatinine 0.6 L (0.8-1.5) mg/dL Calcium 8.2 L (8.4-10.2) mg/dL Iron 16 L (49-181) ug/dL TIBC 221 L (250-450) mcg/dL ALT < 5 L (7-56) units/L Total Protein 5.9 L (6.3-8.2) g/dL Albumin 2.5 L (3.9-5) g/dL HDL Cholesterol 29 L (40-59) mg/dL Medications & Allergies - Medications Allergies/Adverse Reactions: Allergies No Known Allergies Allergy (Unverified 07/08/18 12:10) Home Medications: Home Medications Medication Instructions Recorded Confirmed Last Taken Type No Known Home Medications [No 07/08/18 07/08/18 Unknown History Reported Home Medications] Active Medications: Generic Name Dose Route Start Last Admin Trade Name Freq PRN Reason Stop Dose Admin Acetaminophen 650 mg 07/08/18 15:52 07/09/18 11:00 Tylenol PO 650 mg Q4H PRN Administration Pain MILD(1-3)/Fever >100.5/SALDAÑA Albuterol 2.5 mg 07/08/18 15:52 Proventil IH Q4HRT PRN Shortness Of Breath Aspirin 325 mg 07/14/18 10:00 07/14/18 10:19 Aspirin PO 325 mg QDAY KRISHAN Administration Atorvastatin Calcium 40 mg 07/13/18 22:00 07/13/18 21:35 Lipitor PO 40 mg QHS KRISHAN Administration Hydromorphone HCl 0.5 mg 07/08/18 19:26 07/09/18 21:05 Dilaudid IV 0.5 mg Q4H PRN Administration pain Levetiracetam 500 mg/ Dextrose 105 mls @ 400 mls/hr 07/13/18 22:00 07/14/18 10:19 IV 400 mls/hr Q12HR KRISHAN Administration Multivitamins/Minerals 1 each 07/12/18 10:00 07/14/18 10:19 Theragran-M Tab PO 1 each QDAY KRISHAN Administration Ondansetron HCl 4 mg 07/08/18 15:52 Zofran IV Q8H PRN Nausea And Vomiting Pantoprazole Sodium 40 mg 07/09/18 12:00 07/14/18 10:19 Protonix PO 40 mg QDAY KRISHAN Administration Sodium Chloride 10 ml 07/08/18 22:00 07/14/18 10:19 Sodium Chloride Flush Syringe 10 Ml IV 10 ml BID KRISHAN Administration Sodium Chloride 10 ml 07/08/18 15:52 Sodium Chloride Flush Syringe 10 Ml IV PRN PRN LINE FLUSH
--- NOTE | 2018-07-14 13:58 | Event Note ---
Date: 07/14/18 updates to patient's clinical status noted please feel free to call back with any questions or if GI can be of any further assistance. Otherwise we will sign off
--- NOTE | 2018-07-14 20:52 | Consultation ---
HISTORY OF PRESENT ILLNESS: This is a 58-year-old black male that presents to [facility] initially admitted on 07/08/2018. This patient was admitted with a chief complaint initially of abdominal pain. The patient had intermittent periumbilical and epigastric pain, nausea and vomiting. He was having severe pain and awakening with pain in his left forearm. When he was initially admitted, he had a pulse rate is 65, blood pressure 154/86. The patient had a very low hematocrit when he was admitted at17.3. The scope subsequently found to have evidence of colon cancer, has been receiving multiple transfusions and from our speaking with Dr. Tapia. There is also noted to have evidence of a small pulmonary embolus. He has had a thoracentesis, ultrasound with paracentesis and pleural fluid removed, which was dark serosanguineous and sent to the lab for the pleural effusion. At some point, the patient was noted to have right-sided weakness. This is initially felt to be potentially related to metastatic disease and he has had a CT scan of the head, which I did review and go over with Dr. Tapia. There was an ischemic stroke in the right frontal, temporal and parietal lobe, which has the appearance of an acute infarct. I have reviewed over this and this is potentially thought to be metabolic, but also more likely a middle cerebral artery distribution complicated by the above factors. Also, note that he has multiple metastatic lesions on the chest x-ray and a large collection of a bloody pleural fluid. I spoke with Dr. Tapia. I do not think this patient should receive full heparinization. There are too many factors in his medical presentation; typically full anticoagulation is not safe at this point. I will start the patient on anticonvulsant. JOB# [id number] GHAZAL/SHELL
--- NOTE | 2018-07-15 00:11 | Event Note ---
Date: 07/15/18 RN call to advise patient has temp 101.6; stat cultures and lactic acid ordered. Elevated lactic acid at 3.00 patient started on Zosyn and and NS at 125ml/hr
[2018-07-15] MEDS: ZOSYN/NS 4.5GM/100ML 4.5 GM/100 ML VIAL IV SCH ×4 (00:49→19:49)
[2018-07-15] MEDS: NACL 0.9% 1000 ML 1,000 ML IV SCH ×3 (00:49→22:21)
[2018-07-15] MEDS: TYLENOL PO PRN ×2 (00:50→22:28)
[2018-07-15 03:44] LABS: Hematocrit 32.3 % (35.5-45.6); Hemoglobin 9.9 gm/dl (11.8-15.2); Mean Corpuscular HGB Conc 31 % (32-34); Mean Corpuscular Volume 73 fl (84-94); Platelet Count 326 K/mm3 (140-440); Red Blood Count 4.41 M/mm3 (3.65-5.03)
[2018-07-15 03:48] LABS: Red Cell Distribution Width 30.8 % (13.2-15.2)
[2018-07-15 04:36] LABS: Alanine Aminotransferase 7 units/L (7-56); Albumin 2.4 g/dL (3.9-5); BUN/Creatinine Ratio 19; Blood Urea Nitrogen 13 mg/dL (9-20); Calcium 8.1 mg/dL (8.4-10.2); Hemolysis Index 1
[2018-07-15 04:49] LABS: Band Neutrophils # (Manual) 1.5 K/mm3; Basophils % (Manual) 0 % (0.0-1.8); Eosinophils % (Manual) 0 % (0.0-4.3); Total Cells Counted 100
[2018-07-15 04:54] LABS: Anisocytosis 1+; Hypochromasia 2+
[2018-07-15 04:55] LABS: Ovalocytes Few; Platelet Estimate Consistent w Auto
--- NOTE | 2018-07-15 06:54 | Progress Note ---
Assessment and Plan Assessment and plan: Patient is a 58 y/o male with PMH of developmental delay, debility who presented to ED for evaluation of abdominal pain and generalized weakness. admission found to be severely anemic with hb 4.4,s/p 5 PRBC, evaluated by GI colonoscopy stage IV colon cancer metastasis to liver, oncology following Acute PE, acute bilateral DVT, not a candidate for anticoagulation due to acute embolic CVA, not a candidate for TPA Evaluated by vascular, scheduled for IVC filter placement today. Requested REUBEN in view of embolic CVA. Very poor prognosis, recommend palliative care and hospice, full code at this point. Assessment and plan; --Acute bilateral lower extremity DVT; contraindication for anticoagulation due to about reasons IVC filter placement today, per Dr. Skaggs, --Acute pulmonary embolism; contraindication for anticoagulation In view of acute CVA, severe anemia requiring multiple units of PRBC --Acute embolic CVA; not a candidate for TPA, aspirin, monitor for any bleeding Statin, neurology following,REUBEN --Stage IV Colon cancer metastasized to liver s/p EGD and colonoscopy 1.Normal upper GI tract, 2. Near-obstructing mass in sigmoid colon; endoscope could not pass (incomplete colonoscopy 2nd malignant obstruction) Oncology consulted --Anemia due to GI bleed Monitor CBC, s/p 5 units PRBC Transfusion, supportive care. --Liver mass Could be metastatic lesion, GI consulted, check CEA, CA 19-9, --Ascitis, due to liver mass s/p paracentesis drained 4L fluid, wait for fluid study --Moderate bilateral pleural effusion Right more than left, likely from underlying metastatic disease and hepatitic mass s/p thoracentesis today draoned 900cc fluid --Hyponatremia ;Likely from hypervolemia, improved --Severe malnutrition/hypoalbuminemia; nutrition consult Nutrition supplements and supportive care --DVT prophylaxis SCD to BLE while in bed. Hold anticoagulation for now due to symptomatic anemia. Plan of care reviewed with the patient and his nurse Very poor prognosis with multiple problems Recommend palliative care/hospice I discussed in detail with sister Ms.Lizzy Riley at the bedside And with fianc Marianela Chavo over the phone and indicated the bedside They both verbalized understanding of patient's critical condition and poor prognosis. I also recommended to them hospice and palliative care. They would discuss with the family Full CODE STATUS at this point History Interval history: Is scheduled for IVC filter placement today Spiked a fever last night, cultures sent, empiric antibiotics Afebrile this morning, minimally communicative and lethargic Vital signs noted Hospitalist Physical - Constitutional Vitals: Temp Pulse Resp BP Pulse Ox 98.5 F 60 20 131/63 97 07/15/18 05:00 07/15/18 05:00 07/15/18 05:00 07/15/18 05:00 07/15/18 05:00 General appearance: Present: mild distress, cachectic, disheveled - EENT Eyes: Present: PERRL, EOM intact - Neck Neck: Present: supple, normal ROM - Respiratory Respiratory effort: labored Respiratory: bilateral: diminished, rhonchi, negative: rales, wheezing - Cardiovascular Rhythm: regular Heart Sounds: Present: S1 & S2 - Extremities Extremities: no ischemia Extremity abnormal: edema - Abdominal General gastrointestinal: soft, non-tender, non-distended, normal bowel sounds, mass - Integumentary Integumentary: Present: clear, warm - Psychiatric Psychiatric: cooperative, other (minimally communicative) - Neurologic Neurologic: other (residual weakness) Results - Labs CBC & Chem 7: 07/15/18 02:50 07/15/18 02:50 Labs: Laboratory Last Values WBC 19.2 K/mm3 (4.5-11.0) H 07/15/18 02:50 RBC 4.41 M/mm3 (3.65-5.03) 07/15/18 02:50 Hgb 9.9 gm/dl (11.8-15.2) L 07/15/18 02:50 Hct 32.3 % (35.5-45.6) L 07/15/18 02:50 MCV 73 fl (84-94) L 07/15/18 02:50 MCH 22 pg (28-32) L 07/15/18 02:50 MCHC 31 % (32-34) L 07/15/18 02:50 RDW 30.8 % (13.2-15.2) H 07/15/18 02:50 Plt Count 326 K/mm3 (140-440) 07/15/18 02:50 Add Manual Diff Complete 07/15/18 02:50 Total Counted 100 07/15/18 02:50 Seg Neutrophils % Gaming Investigator 07/15/18 02:50 Seg Neuts % (Manual) 91.0 % (40.0-70.0) H 07/15/18 02:50 8.0 % 07/15/18 02:50 0 % (13.4-35.0) L 07/15/18 02:50 Reactive Lymphs % (Man) 0 % 07/15/18 02:50 1.0 % (0.0-7.3) 07/15/18 02:50 0 % (0.0-4.3) 07/15/18 02:50 0 % (0.0-1.8) 07/15/18 02:50 0 % 07/15/18 02:50 0 % 07/15/18 02:50 0 % 07/15/18 02:50 0 % 07/15/18 02:50 Nucleated RBC % Not Reportable 07/15/18 02:50 Seg Neutrophils # Man 17.5 K/mm3 (1.8-7.7) H 07/15/18 02:50 Band Neutrophils # 1.5 K/mm3 07/15/18 02:50 0.0 K/mm3 (1.2-5.4) L 07/15/18 02:50 Abs React Lymphs (Man) 0.0 K/mm3 07/15/18 02:50 0.2 K/mm3 (0.0-0.8) 07/15/18 02:50 0.0 K/mm3 (0.0-0.4) 07/15/18 02:50 0.0 K/mm3 (0.0-0.1) 07/15/18 02:50 0.0 K/mm3 07/15/18 02:50 0.0 K/mm3 07/15/18 02:50 0.0 K/mm3 07/15/18 02:50 Blast Cells # 0.0 K/mm3 07/15/18 02:50 WBC Morphology Not Reportable 07/15/18 02:50 Hypersegmented Neuts Not Reportable 07/15/18 02:50 Hyposegmented Neuts Not Reportable 07/15/18 02:50 Hypogranular Neuts Not Reportable 07/15/18 02:50 Not Reportable 07/15/18 02:50 Not Reportable 07/15/18 02:50 Not Reportable 07/15/18 02:50 Not Reportable 07/15/18 02:50 Not Reportable 07/15/18 02:50 Not Reportable 07/15/18 02:50 Consistent w auto 07/15/18 02:50 Not Reportable 07/15/18 02:50 Plt Clumps, EDTA Not Reportable 07/15/18 02:50 Not Reportable 07/15/18 02:50 Not Reportable 07/15/18 02:50 Not Reportable 07/15/18 02:50 Plt Morphology Comment Not Reportable 07/15/18 02:50 RBC Morphology Not Reportable 07/15/18 02:50 Dimorphic RBCs Not Reportable 07/15/18 02:50 Not Reportable 07/15/18 02:50 2+ 07/15/18 02:50 Not Reportable 07/15/18 02:50 1+ 07/15/18 02:50 Not Reportable 07/15/18 02:50 Not Reportable 07/15/18 02:50 Not Reportable 07/15/18 02:50 Not Reportable 07/15/18 02:50 Not Reportable 07/15/18 02:50 Not Reportable 07/15/18 02:50 Not Reportable 07/15/18 02:50 Few 07/15/18 02:50 Not Reportable 07/15/18 02:50 Not Reportable 07/15/18 02:50 Not Reportable 07/15/18 02:50 Not Reportable 07/15/18 02:50 Not Reportable 07/15/18 02:50 Not Reportable 07/15/18 02:50 Not Reportable 07/15/18 02:50 Acanthocytes (Spur) Not Reportable 07/15/18 02:50 Rouleaux Not Reportable 07/15/18 02:50 Not Reportable 07/15/18 02:50 Not Reportable 07/15/18 02:50 Not Reportable 07/15/18 02:50 Not Reportable 07/15/18 02:50 Hem Pathologist Commnt No 07/15/18 02:50 PT 15.5 Sec. (12.2-14.9) H 07/10/18 08:34 INR 1.16 (0.87-1.13) H 07/10/18 08:34 APTT 35.4 Sec. (24.2-36.6) 07/10/18 08:34 Sodium 136 mmol/L (137-145) L 07/15/18 02:50 Potassium 3.8 mmol/L (3.6-5.0) 07/15/18 02:50 Chloride 98.0 mmol/L (98-107) 07/15/18 02:50 Carbon Dioxide 20 mmol/L (22-30) L 07/15/18 02:50 22 mmol/L 07/15/18 02:50 BUN 13 mg/dL (9-20) 07/15/18 02:50 0.7 mg/dL (0.8-1.5) L 07/15/18 02:50 Estimated GFR > 60 ml/min 07/15/18 02:50 19 % 07/15/18 02:50 Glucose 53 mg/dL (75-100) L 07/15/18 02:50 Lactic Acid 1.20 mmol/L (0.7-2.0) 07/15/18 02:50 Calcium 8.1 mg/dL (8.4-10.2) L 07/15/18 02:50 Phosphorus 2.90 mg/dL (2.5-4.5) 07/15/18 02:50 Magnesium 1.90 mg/dL (1.7-2.3) 07/15/18 02:50 Iron 16 ug/dL (49-181) L 07/14/18 04:47 TIBC 221 mcg/dL (250-450) L 07/14/18 04:47 137.5 ng/mL (13.0-400.0) 07/14/18 04:47 0.40 mg/dL (0.1-1.2) 07/15/18 02:50 AST 15 units/L (5-40) 07/15/18 02:50 ALT 7 units/L (7-56) 07/15/18 02:50 100 units/L (35-129) 07/15/18 02:50 5.3 g/dL (6.3-8.2) L 07/15/18 02:50 2.4 g/dL (3.9-5) L 07/15/18 02:50 0.8 % 07/15/18 02:50 Triglycerides 78 mg/dL (2-149) 07/14/18 04:47 Cholesterol 126 mg/dL (50-199) 07/14/18 04:47 93 mg/dL (50-130) 07/14/18 04:47 29 mg/dL (40-59) L 07/14/18 04:47 4.34 % 07/14/18 04:47 16 units/L (13-60) 07/08/18 13:13 Carcinoembryonic Ag See scanned result 07/08/18 16:07 8 U/mL (<34) 07/08/18 16:07 TSH 1.550 mlU/mL (0.270-4.200) 07/08/18 17:22 Free T4 1.17 ng/dL (0.76-1.46) 07/08/18 17:22 Fluid Type Ascitic 07/10/18 Unknown Fluid Color Anita 07/10/18 Unknown Fluid Appearance Cloudy 07/10/18 Unknown Fluid WBC 36 /mm3 07/10/18 Unknown Fluid RBC 84517 /mm3 07/10/18 Unknown Fluid Seg Neutrophils 7.0 % 07/10/18 Unknown Fluid Lymphocytes 50.0 % 07/10/18 Unknown Fluid Reactive Lymphs Not Reportable 07/10/18 Unknown Fluid Monocytes 43.0 % 07/10/18 Unknown Fluid Eosinophils Not Reportable 07/10/18 Unknown Fluid Basophils Not Reportable 07/10/18 Unknown Hepatitis A IgM Ab Non-reactive (NonReactive) 07/10/18 06:01 Hep Bs Antigen Non-reactive (Negative) 07/10/18 06:01 Hep B Core IgM Ab Non-reactive (NonReactive) 07/10/18 06:01 Non-reactive (NonReactive) 07/10/18 06:01 Blood Type A POSITIVE 07/08/18 15:24 Antibody Screen Negative 07/08/18 15:24 Crossmatch See Detail 07/08/18 15:24 Active Medications - Current Medications Current Medications: Generic Name Dose Route Start Last Admin Trade Name Freq PRN Reason Stop Dose Admin Acetaminophen 650 mg 07/14/18 22:57 07/15/18 00:50 Tylenol PO 650 mg Q6H PRN Administration Fever >101 Albuterol 2.5 mg 07/08/18 15:52 Proventil IH Q4HRT PRN Shortness Of Breath Aspirin 325 mg 07/14/18 10:00 07/14/18 10:19 Aspirin PO 325 mg QDAY KRISHAN Administration Atorvastatin Calcium 40 mg 07/13/18 22:00 07/14/18 22:05 Lipitor PO 40 mg QHS KRISHAN Administration Hydromorphone HCl 0.5 mg 07/08/18 19:26 07/09/18 21:05 Dilaudid IV 0.5 mg Q4H PRN Administration pain Levetiracetam 500 mg/ Dextrose 105 mls @ 400 mls/hr 07/13/18 22:00 07/14/18 22:05 IV 400 mls/hr Q12HR KRISHAN Administration Piperacillin Sod/Tazobactam Sod 4.5 gm in 100 mls @ 200 mls/hr 07/15/18 01:00 07/15/18 00:49 Zosyn/Ns 4.5gm/100ml IV 200 mls/hr Q6HR KRISHAN Administration Protocol Sodium Chloride 1,000 mls @ 125 mls/hr 07/15/18 01:00 07/15/18 00:49 Nacl 0.9% 1000 Ml IV 125 mls/hr DIRECT KRISHAN Administration Multivitamins/Minerals 1 each 07/12/18 10:00 07/14/18 10:19 Theragran-M Tab PO 1 each QDAY KRISHAN Administration Ondansetron HCl 4 mg 07/08/18 15:52 Zofran IV Q8H PRN Nausea And Vomiting Pantoprazole Sodium 40 mg 07/09/18 12:00 07/14/18 10:19 Protonix PO 40 mg QDAY KRISHAN Administration Sodium Chloride 10 ml 07/08/18 22:00 07/14/18 22:06 Sodium Chloride Flush Syringe 10 Ml IV 10 ml BID KRISHAN Administration Sodium Chloride 10 ml 07/08/18 15:52 Sodium Chloride Flush Syringe 10 Ml IV PRN PRN LINE FLUSH Nutrition/Malnutrition Assess - Dietary Evaluation Nutrition/Malnutrition Findings: Nutrition Notes Start: 07/09/18 14:23 Freq: Status: Active Protocol: Document 07/11/18 16:37 RM (Rec: 07/11/18 16:44 RM [id number]) Nutrition Notes Initial or Follow up Reassessment Other Pertinent Diagnosis Developmental delay, Colon cancer metastasized to liver Current Diet NPO Labs/Tests Reviewed Pertinent Medications Reviewed Height 5 ft 10 in Weight 56.6 kg Fults Body Weight (kg) 75.45 BMI 17.9 Weight change and time frame Current wt obtained from [facility]. Wt change likely d/t fluid change. Subjective/Other Information Pt was NPO this morning from paracentesis yesterday. Clear liquid diet was in place for lunch at time of visit. NPO ordered later today. Pt and pt relative in room. Pt eating lunch at time of visit. Burn Absent Trauma Absent #1 Nutrition Diagnosis Inadequate oral intake Diagnosis Progress(for reassessment Continues documentation) Is patient on ventilator? No Is Patient Ambulatory and/or Out of Bed No REE-([facility]-confined to bed) [phone] Calculation Used for Recommendations [facility] Additional Notes Protein Needs: 82-122g (1-1.5g /kg) Fluid Needs: 1 ml/kcal Nutrition Intervention Change Diet Order: Advance diet when medically able Add Supplement/Snack (indicate name/kcal Ensure Clear 1 daily once diet /protein ) advanced Provides kCal: 240 Provides Protein (gm) 8 Goal #1 Meet at least 75% of calorie and protein needs via PO and ONS intakes Anticipated Discharge Needs: Unable to determine at this time Follow-Up By: 07/15/18 Additional Comments Follow for PO and ONS intakes
--- NOTE | 2018-07-15 07:11 | Hem/Onc Progress Note ---
Assessment and Plan 1. Likely stage 4 colon cancer with ascites, liver lesions. 2. CEA is elevated in the 90s. 3. Anemia secondary to iron deficiency. MCV is low, status post transfusion. 4. The patient lives alone, but there is developmental disability. As per the sister, he was able to manage on his own. At this time, he is not able to give a good history, so his mentation evaluation is difficult. 5. His mentation/developmental disability will help us decide regarding the treatment options. He is young, but this is a stage 4 cancer based on clinical scenario and the treatment is non-curative and palliative. I will follow the patient during inpatient stay. CT head - done - CVA CT chest - Pe leg - DVT IVC filter eval abdo exam - hard lump in central area path of ascites - malignant cells + neurology consultation reg anticoagulation in view of CVA - Patient Problems (1) Colon cancer metastasized to liver Current Visit: Yes Status: Acute Subjective Date of service: 07/15/18 Principal diagnosis: colon ca - stage IV Interval history: pt found to ahve PE - DVt and CVA Objective - Constitutional Vitals: Last Vital Signs Temp 98.5 F 07/15/18 05:00 Pulse 60 07/15/18 05:00 Resp 20 07/15/18 05:00 BP 131/63 07/15/18 05:00 Pulse Ox 97 07/15/18 05:00 Pain Intensity (0-10): denies any pain General appearance: no acute distress Performance status: 4-completely disabled - EENT Eyes: EOM intact ENT: hearing intact Lymph node exam: negative cervical - Neck Neck: supple - Respiratory Respiratory effort: Positive: normal Respiratory: bilateral: diminished - Cardiovascular Heart Sounds: Present: S1 & S2 Extremities: No edema, normal temperature - Gastrointestinal General gastrointestinal: Present: soft, other (lump palpable) Rectal Exam: deferred - Genitourinary Male genitourinary: Present: deferred - Integumentary Integumentary: warm - Musculoskeletal Musculoskeletal: generalized weakness - Neurologic Neurologic: moves all extremities - Labs Lab Results: Laboratory Results - last 24 hr 07/14/18 07/15/18 07/15/18 23:09 00:32 02:50 WBC 19.2 H RBC 4.41 Hgb 9.9 L Hct 32.3 L MCV 73 L MCH 22 L MCHC 31 L RDW 30.8 H Plt Count 326 Add Manual Diff Complete Total Counted 100 Seg Neutrophils % Explosives Handler Seg Neuts % (Manual) 91.0 H Band Neutrophils % 8.0 Lymphocytes % (Manual) 0 L Reactive Lymphs % (Man) 0 Monocytes % (Manual) 1.0 Eosinophils % (Manual) 0 Basophils % (Manual) 0 Metamyelocytes % 0 Myelocytes % 0 Promyelocytes % 0 Blast Cells % 0 Nucleated RBC % Not Reportable Seg Neutrophils # Man 17.5 H Band Neutrophils # 1.5 Lymphocytes # (Manual) 0.0 L Abs React Lymphs (Man) 0.0 Monocytes # (Manual) 0.2 Eosinophils # (Manual) 0.0 Basophils # (Manual) 0.0 Metamyelocytes # 0.0 Myelocytes # 0.0 Promyelocytes # 0.0 Blast Cells # 0.0 WBC Morphology Not Reportable Hypersegmented Neuts Not Reportable Hyposegmented Neuts Not Reportable Hypogranular Neuts Not Reportable Smudge Cells Not Reportable Toxic Granulation Not Reportable Toxic Vacuolation Not Reportable Dohle Bodies Not Reportable Pelger-Huet Anomaly Not Reportable Candelario Rods Not Reportable Platelet Estimate Consistent w auto Clumped Platelets Not Reportable Plt Clumps, EDTA Not Reportable Large Platelets Not Reportable Giant Platelets Not Reportable Platelet Satelliting Not Reportable Plt Morphology Comment Not Reportable RBC Morphology Not Reportable Dimorphic RBCs Not Reportable Polychromasia Not Reportable Hypochromasia 2+ Poikilocytosis Not Reportable Anisocytosis 1+ Microcytosis Not Reportable Macrocytosis Not Reportable Spherocytes Not Reportable Pappenheimer Bodies Not Reportable Sickle Cells Not Reportable Target Cells Not Reportable Tear Drop Cells Not Reportable Ovalocytes Few Helmet Cells Not Reportable [place] Bodies Not Reportable [place] Rings Not Reportable [place] Cells Not Reportable Bite Cells Not Reportable Crenated Cell Not Reportable Elliptocytes Not Reportable Acanthocytes (Spur) Not Reportable Rouleaux Not Reportable Hemoglobin C Crystals Not Reportable Schistocytes Not Reportable Malaria parasites Not Reportable Tray Bodies Not Reportable Hem Pathologist Commnt No Sodium Potassium Chloride Carbon Dioxide Anion Gap BUN Creatinine Estimated GFR BUN/Creatinine Ratio Glucose Lactic Acid 3.00 H* 2.00 Calcium Phosphorus Magnesium Total Bilirubin AST ALT Alkaline Phosphatase Total Protein Albumin Albumin/Globulin Ratio 07/15/18 07/15/18 02:50 02:50 WBC RBC Hgb Hct MCV MCH MCHC RDW Plt Count Add Manual Diff Total Counted Seg Neutrophils % Seg Neuts % (Manual) Band Neutrophils % Lymphocytes % (Manual) Reactive Lymphs % (Man) Monocytes % (Manual) Eosinophils % (Manual) Basophils % (Manual) Metamyelocytes % Myelocytes % Promyelocytes % Blast Cells % Nucleated RBC % Seg Neutrophils # Man Band Neutrophils # Lymphocytes # (Manual) Abs React Lymphs (Man) Monocytes # (Manual) Eosinophils # (Manual) Basophils # (Manual) Metamyelocytes # Myelocytes # Promyelocytes # Blast Cells # WBC Morphology Hypersegmented Neuts Hyposegmented Neuts Hypogranular Neuts Smudge Cells Toxic Granulation Toxic Vacuolation Dohle Bodies Pelger-Huet Anomaly Candelario Rods Platelet Estimate Clumped Platelets Plt Clumps, EDTA Large Platelets Giant Platelets Platelet Satelliting Plt Morphology Comment RBC Morphology Dimorphic RBCs Polychromasia Hypochromasia Poikilocytosis Anisocytosis Microcytosis Macrocytosis Spherocytes Pappenheimer Bodies Sickle Cells Target Cells Tear Drop Cells Ovalocytes Helmet Cells [place] Bodies [place] Rings Shanthi Cells Bite Cells Crenated Cell Elliptocytes Acanthocytes (Spur) Rouleaux Hemoglobin C Crystals Schistocytes Malaria parasites Tray Bodies Hem Pathologist Commnt Sodium 136 L Potassium 3.8 Chloride 98.0 Carbon Dioxide 20 L Anion Gap 22 BUN 13 Creatinine 0.7 L Estimated GFR > 60 BUN/Creatinine Ratio 19 Glucose 53 L Lactic Acid 1.20 Calcium 8.1 L Phosphorus 2.90 Magnesium 1.90 Total Bilirubin 0.40 AST 15 ALT 7 Alkaline Phosphatase 100 Total Protein 5.3 L Albumin 2.4 L Albumin/Globulin Ratio 0.8 Medications & Allergies - Medications Allergies/Adverse Reactions: Allergies No Known Allergies Allergy (Unverified 07/08/18 12:10) Home Medications: Home Medications Medication Instructions Recorded Confirmed Last Taken Type RX: No Known Home Medications [No 07/08/18 07/08/18 Unknown History Reported Home Medications] Active Medications: Generic Name Dose Route Start Last Admin Trade Name Freq PRN Reason Stop Dose Admin Acetaminophen 650 mg 07/14/18 22:57 07/15/18 00:50 Tylenol PO 650 mg Q6H PRN Administration Fever >101 Albuterol 2.5 mg 07/08/18 15:52 Proventil IH Q4HRT PRN Shortness Of Breath Aspirin 325 mg 07/14/18 10:00 07/14/18 10:19 Aspirin PO 325 mg QDAY KRISHAN Administration Atorvastatin Calcium 40 mg 07/13/18 22:00 07/14/18 22:05 Lipitor PO 40 mg QHS KRISHAN Administration Hydromorphone HCl 0.5 mg 07/08/18 19:26 07/09/18 21:05 Dilaudid IV 0.5 mg Q4H PRN Administration pain Levetiracetam 500 mg/ Dextrose 105 mls @ 400 mls/hr 07/13/18 22:00 07/14/18 22:05 IV 400 mls/hr Q12HR KRISHAN Administration Piperacillin Sod/Tazobactam Sod 4.5 gm in 100 mls @ 200 mls/hr 07/15/18 01:00 07/15/18 07:01 Zosyn/Ns 4.5gm/100ml IV 200 mls/hr Q6HR KRISHAN Administration Protocol Sodium Chloride 1,000 mls @ 125 mls/hr 07/15/18 01:00 07/15/18 00:49 Nacl 0.9% 1000 Ml IV 125 mls/hr DIRECT KRISHAN Administration Multivitamins/Minerals 1 each 07/12/18 10:00 07/14/18 10:19 Theragran-M Tab PO 1 each QDAY KRISHAN Administration Ondansetron HCl 4 mg 07/08/18 15:52 Zofran IV Q8H PRN Nausea And Vomiting Pantoprazole Sodium 40 mg 07/09/18 12:00 07/14/18 10:19 Protonix PO 40 mg QDAY KRISHAN Administration Sodium Chloride 10 ml 07/08/18 22:00 07/14/18 22:06 Sodium Chloride Flush Syringe 10 Ml IV 10 ml BID KRISHAN Administration Sodium Chloride 10 ml 07/08/18 15:52 Sodium Chloride Flush Syringe 10 Ml IV PRN PRN LINE FLUSH
--- NOTE | 2018-07-15 08:11 | Progress Note ---
Subjective Date of service: 07/15/18 Principal diagnosis: Colon Cancer Interval history: spoke with Dr. Vidal yesterday and plan EEG today follow up CT in 2-3 days the cancer dx is problematic aspect Objective - Vital Sign Vital Signs - 12hr 07/14/18 07/14/18 07/15/18 21:48 22:34 04:42 Temperature 101.6 F H 101.6 F H 98.5 F Pulse Rate 88 Respiratory 24 24 20 Rate Blood Pressure 138/73 131/63 Blood Pressure 138/73 [Right] O2 Sat by Pulse 98 Oximetry 07/15/18 05:00 Temperature 98.5 F Pulse Rate 60 Respiratory 20 Rate Blood Pressure Blood Pressure 131/63 [Right] O2 Sat by Pulse 97 Oximetry - Laboratory Findings CBC and BMP: 07/15/18 02:50 07/15/18 02:50 Abnormal Lab Findings: Abnormal Labs 07/08/18 07/08/18 07/08/18 13:13 14:03 15:24 WBC RBC 2.99 L Hgb 4.4 L* Hct 17.3 L* MCV 58 L MCH 15 L MCHC 26 L RDW 23.2 H Plt Count 899 H Seg Neuts % (Manual) Lymphocytes % (Manual) Monocytes % (Manual) 9.0 H Nucleated RBC % Seg Neutrophils # Man Lymphocytes # (Manual) PT INR Sodium 135 L Carbon Dioxide 20 L Creatinine 0.6 L Glucose Lactic Acid Calcium Iron TIBC ALT < 5 L Total Protein Albumin 3.1 L HDL Cholesterol Crossmatch See Detail 07/09/18 07/10/18 07/10/18 07:42 06:01 06:01 WBC 16.5 H RBC Hgb 7.5 L D 10.0 L Hct 25.1 L D 31.7 L D MCV 68 L 72 L MCH 20 L 23 L MCHC 30 L RDW 32.0 H 29.0 H Plt Count 584 H Seg Neuts % (Manual) 96.0 H Lymphocytes % (Manual) 1.0 L Monocytes % (Manual) Nucleated RBC % 1.0 H Seg Neutrophils # Man 15.8 H Lymphocytes # (Manual) 0.2 L PT INR Sodium 135 L Carbon Dioxide 19 L Creatinine 0.6 L Glucose Lactic Acid Calcium 8.0 L Iron TIBC ALT < 5 L Total Protein 6.2 L Albumin 2.5 L HDL Cholesterol Crossmatch 0507/11/18 07/11/18 08:34 12:28 12:38 WBC 12.3 H RBC 5.33 H Hgb Hct MCV 72 L MCH 22 L MCHC 31 L RDW 30.6 H Plt Count Seg Neuts % (Manual) Lymphocytes % (Manual) Monocytes % (Manual) Nucleated RBC % Seg Neutrophils # Man Lymphocytes # (Manual) PT 15.5 H INR 1.16 H Sodium Carbon Dioxide 19 L Creatinine 0.6 L Glucose Lactic Acid Calcium 8.0 L Iron TIBC ALT Total Protein Albumin HDL Cholesterol Crossmatch 07/13/18 07/13/18 07/14/18 04:40 22:46 04:47 WBC RBC Hgb 11.7 L 11.1 L Hct MCV MCH MCHC RDW Plt Count Seg Neuts % (Manual) Lymphocytes % (Manual) Monocytes % (Manual) Nucleated RBC % Seg Neutrophils # Man Lymphocytes # (Manual) PT INR Sodium 136 L Carbon Dioxide Creatinine 0.6 L Glucose Lactic Acid Calcium 8.2 L Iron 16 L TIBC 221 L ALT < 5 L Total Protein 5.9 L Albumin 2.5 L HDL Cholesterol 29 L Crossmatch 07/14/18 07/14/18 07/15/18 04:47 23:09 02:50 WBC 19.2 H RBC Hgb 11.1 L 9.9 L Hct 32.3 L MCV 73 L 73 L MCH 23 L 22 L MCHC 31 L 31 L RDW 31.1 H 30.8 H Plt Count Seg Neuts % (Manual) 83.0 H 91.0 H Lymphocytes % (Manual) 12.0 L 0 L Monocytes % (Manual) Nucleated RBC % Seg Neutrophils # Man 17.5 H Lymphocytes # (Manual) 0.9 L 0.0 L PT INR Sodium Carbon Dioxide Creatinine Glucose Lactic Acid 3.00 H* Calcium Iron TIBC ALT Total Protein Albumin HDL Cholesterol Crossmatch 07/15/18 02:50 WBC RBC Hgb Hct MCV MCH MCHC RDW Plt Count Seg Neuts % (Manual) Lymphocytes % (Manual) Monocytes % (Manual) Nucleated RBC % Seg Neutrophils # Man Lymphocytes # (Manual) PT INR Sodium 136 L Carbon Dioxide 20 L Creatinine 0.7 L Glucose 53 L Lactic Acid Calcium 8.1 L Iron TIBC ALT Total Protein 5.3 L Albumin 2.4 L HDL Cholesterol Crossmatch
[2018-07-15] MEDS ORDERED: FERRLECIT 125 MG in NACL 0.9% 100 ML IV ONE (10:00)
[2018-07-15] MEDS: KEPPRA 500 MG in D5W 100 ML IV SCH ×2 (10:02→22:28)
[2018-07-15] MEDS: THERAGRAN-M Tab PO SCH (10:48)
[2018-07-15] MEDS: ASPIRIN PO SCH (10:48)
[2018-07-15] MEDS: PROTONIX PO SCH (10:48)
[2018-07-15] MEDS: SODIUM CHLORIDE FLUSH SYRINGE 10 ML IV SCH ×2 (10:48→22:21)
[2018-07-15] MEDS: DILAUDID IV PRN ×2 (11:05→18:45)
--- NOTE | 2018-07-15 13:34 | Event Note ---
Date: 07/15/18 Mr. Riley was on the schedule today to have an IVC filter placed. Unfortunately, one of the helper animal laboratory rooms went down requiring all cases to be done in a single room. This decreased the amount of cases which could be done in a day and therefore the patient will need to be rescheduled for tomorrow. Diet restored. NPO after MN.
[2018-07-16] MEDS: ZOSYN/NS 4.5GM/100ML 4.5 GM/100 ML VIAL IV SCH ×3 (01:17→15:17)
[2018-07-16] MEDS: TYLENOL PO PRN (05:20)
[2018-07-16 05:26] LABS: Hematocrit 32.3 % (35.5-45.6); Mean Corpuscular HGB Conc 31 % (32-34); Mean Corpuscular Volume 74 fl (84-94); Platelet Count 297 K/mm3 (140-440); Red Blood Count 4.38 M/mm3 (3.65-5.03)
[2018-07-16 05:32] LABS: Red Cell Distribution Width 30.1 % (13.2-15.2)
[2018-07-16 05:48] LABS: Alanine Aminotransferase 6 units/L (7-56); Albumin 2.1 g/dL (3.9-5); BUN/Creatinine Ratio 17; Blood Urea Nitrogen 10 mg/dL (9-20); Calcium 7.6 mg/dL (8.4-10.2); Hemolysis Index 4
[2018-07-16 06:35] LABS: Band Neutrophils # (Manual) 0.4 K/mm3; Basophils % (Manual) 0 % (0.0-1.8); Total Cells Counted 100
[2018-07-16 06:36] LABS: Anisocytosis 3+; Hypochromasia 1+; Large Platelets Rare; Platelet Estimate Appe; Tear Drop Cells Rare
[2018-07-16] MEDS: NACL 0.9% 1000 ML 1,000 ML IV SCH (07:04)
[2018-07-16] MEDS: DILAUDID IV PRN ×3 (07:04→15:13)
--- NOTE | 2018-07-16 07:43 | Hem/Onc Progress Note ---
Assessment and Plan 1. Likely stage 4 colon cancer with ascites, liver lesions. 2. CEA is elevated in the 90s. 3. Anemia secondary to iron deficiency. MCV - low, status post transfusion. 4. The patient lives alone, but there is developmental disability. he is not able to give a good history, so his mentation evaluation is difficult. 5. His mentation/developmental disability will help us decide regarding the treatment options. He is young, but this is a stage 4 cancer based on clinical scenario and the treatment is non-curative and palliative. I will follow the patient during inpatient stay. CT head - done - CVA CT chest - Pe leg - DVT IVC filter eval abdo exam - hard lump in central area pathology of ascites - malignant cells + neurology consultation reg anticoagulation in view of CVA d/w sister reg palliation - Patient Problems (1) Colon cancer metastasized to liver Status: Acute Subjective Date of service: 07/16/18 Principal diagnosis: colon ca - dvt - pe Interval history: sister + hospice being looked into Objective - Constitutional Vitals: Last Vital Signs Temp 98.0 F 07/16/18 06:35 Pulse 64 07/16/18 06:35 Resp 20 07/16/18 06:35 BP 144/68 07/16/18 06:35 Pulse Ox 98 07/16/18 06:35 Pain Intensity (0-10): denies any pain General appearance: no acute distress Performance status: 4-completely disabled - EENT ENT: hearing intact Lymph node exam: negative cervical - Respiratory Respiratory effort: Positive: normal Respiratory: bilateral: diminished (effort) - Cardiovascular Heart Sounds: Present: S1 & S2 Extremities: normal temperature - Gastrointestinal General gastrointestinal: Present: soft, distended Rectal Exam: deferred - Genitourinary Male genitourinary: Present: deferred - Integumentary Integumentary: warm - Musculoskeletal Musculoskeletal: generalized weakness - Neurologic Neurologic: other (not able to walk independently) - Labs Lab Results: Laboratory Results - last 24 hr 07/15/18 07/16/18 07/16/18 10:06 05:03 05:03 WBC 10.1 RBC 4.38 Hgb 10.0 L Hct 32.3 L MCV 74 L MCH 23 L MCHC 31 L RDW 30.1 H Plt Count 297 Add Manual Diff Complete Total Counted 100 Seg Neuts % (Manual) 78.0 H Band Neutrophils % 4.0 Lymphocytes % (Manual) 10.0 L Reactive Lymphs % (Man) 0 Monocytes % (Manual) 6.0 Eosinophils % (Manual) 2.0 Basophils % (Manual) 0 Metamyelocytes % 0 Myelocytes % 0 Promyelocytes % 0 Blast Cells % 0 Nucleated RBC % Not Reportable Seg Neutrophils # Man 7.9 H Band Neutrophils # 0.4 Lymphocytes # (Manual) 1.0 L Abs React Lymphs (Man) 0.0 Monocytes # (Manual) 0.6 Eosinophils # (Manual) 0.2 Basophils # (Manual) 0.0 Metamyelocytes # 0.0 Myelocytes # 0.0 Promyelocytes # 0.0 Blast Cells # 0.0 WBC Morphology Not Reportable Hypersegmented Neuts Not Reportable Hyposegmented Neuts Not Reportable Hypogranular Neuts Not Reportable Smudge Cells Not Reportable Toxic Granulation Not Reportable Toxic Vacuolation Not Reportable Dohle Bodies Not Reportable Pelger-Huet Anomaly Not Reportable Candelario Rods Not Reportable Platelet Estimate Appe Clumped Platelets Not Reportable Plt Clumps, EDTA Not Reportable Large Platelets Rare Giant Platelets Not Reportable Platelet Satelliting Not Reportable Plt Morphology Comment Not Reportable RBC Morphology Not Reportable Dimorphic RBCs Not Reportable Polychromasia Not Reportable Hypochromasia 1+ Poikilocytosis Not Reportable Anisocytosis 3+ Microcytosis Not Reportable Macrocytosis Not Reportable Spherocytes Not Reportable Pappenheimer Bodies Not Reportable Sickle Cells Not Reportable Target Cells Not Reportable Tear Drop Cells Rare Ovalocytes Not Reportable Helmet Cells Not Reportable [place] Bodies Not Reportable [place] Rings Not Reportable [place] Cells Not Reportable Bite Cells Not Reportable Crenated Cell Not Reportable Elliptocytes Not Reportable Acanthocytes (Spur) Not Reportable Rouleaux Not Reportable Hemoglobin C Crystals Not Reportable Schistocytes Not Reportable Malaria parasites Not Reportable Tray Bodies Not Reportable Hem Pathologist Commnt No Sodium 135 L Potassium 3.7 Chloride 105.2 Carbon Dioxide 20 L Anion Gap 14 BUN 10 Creatinine 0.6 L Estimated GFR > 60 BUN/Creatinine Ratio 17 Glucose 79 POC Glucose 89 Calcium 7.6 L Total Bilirubin 0.40 AST 13 ALT 6 L Alkaline Phosphatase 67 Total Protein 5.4 L Albumin 2.1 L Albumin/Globulin Ratio 0.6 Medications & Allergies - Medications Allergies/Adverse Reactions: Allergies No Known Allergies Allergy (Unverified 07/08/18 12:10) Home Medications: Home Medications Medication Instructions Recorded Confirmed Last Taken Type No Known Home Medications [No 07/08/18 07/08/18 Unknown History Reported Home Medications] Active Medications: Generic Name Dose Route Start Last Admin Trade Name Freq PRN Reason Stop Dose Admin Acetaminophen 650 mg 07/14/18 22:57 07/16/18 05:20 Tylenol PO 650 mg Q6H PRN Administration Fever >101 Albuterol 2.5 mg 07/08/18 15:52 Proventil IH Q4HRT PRN Shortness Of Breath Aspirin 325 mg 07/14/18 10:00 07/15/18 10:48 Aspirin PO 325 mg QDAY KRISHAN Administration Atorvastatin Calcium 40 mg 07/13/18 22:00 07/15/18 22:21 Lipitor PO 40 mg QHS KRISHAN Administration Hydromorphone HCl 0.5 mg 07/08/18 19:26 07/16/18 07:04 Dilaudid IV 0.5 mg Q4H PRN Administration pain Levetiracetam 500 mg/ Dextrose 105 mls @ 400 mls/hr 07/13/18 22:00 07/15/18 22:28 IV 400 mls/hr Q12HR KRISHAN Administration Piperacillin Sod/Tazobactam Sod 4.5 gm in 100 mls @ 200 mls/hr 07/15/18 01:00 07/16/18 07:04 Zosyn/Ns 4.5gm/100ml IV 200 mls/hr Q6HR KRISHAN Administration Protocol Sodium Chloride 1,000 mls @ 125 mls/hr 07/15/18 01:00 07/16/18 07:04 Nacl 0.9% 1000 Ml IV 125 mls/hr DIRECT KRISHAN Administration Multivitamins/Minerals 1 each 07/12/18 10:00 07/15/18 10:48 Theragran-M Tab PO 1 each QDAY KRISHAN Administration Ondansetron HCl 4 mg 07/08/18 15:52 Zofran IV Q8H PRN Nausea And Vomiting Pantoprazole Sodium 40 mg 07/09/18 12:00 07/15/18 10:48 Protonix PO 40 mg QDAY KRISHAN Administration Sodium Chloride 10 ml 07/08/18 22:00 07/15/18 22:21 Sodium Chloride Flush Syringe 10 Ml IV 10 ml BID KRISHAN Administration Sodium Chloride 10 ml 07/08/18 15:52 Sodium Chloride Flush Syringe 10 Ml IV PRN PRN LINE FLUSH
[2018-07-16] MEDS ORDERED: HURRICAINE ONE 20% TOPICAL SPRAY MM NR (09:00)
[2018-07-16] MEDS ORDERED: NACL 0.9% 500 ML 500 ML IV SCH (09:00)
--- NOTE | 2018-07-16 09:05 | Anesthesia Day of Surgery ---
Anesthesia Day of Surgery - Day of Surgery Patient Examined: Yes Patient H&P Reviewed: Yes Patient is NPO: Yes
[2018-07-16] MEDS ORDERED: DIPRIVAN 10 MG/ML IV ONE (09:08)
[2018-07-16 09:58] VITALS: BP 139/63
[2018-07-16] MEDS: KEPPRA 500 MG in D5W 100 ML IV SCH (11:03)
[2018-07-16] MEDS ORDERED: HEPARIN/NS 5000 UNIT/500ML(CATH LAB) 500 ML IR ONE (13:25)
[2018-07-16] MEDS ORDERED: NACL 0.9% 500 ML 500 ML ONE (13:25)
[2018-07-16] MEDS ORDERED: XYLOCAINE 2% INFILTRATI ONE (13:25)
[2018-07-16] MEDS ORDERED: VERSED ONE (13:26)
[2018-07-16] MEDS ORDERED: SUBLIMAZE ONE (13:26)
--- NOTE | 2018-07-16 13:45 | Discharge Summary ---
Providers - Providers Date of Admission: 07/08/18 15:52 Date of discharge: 07/16/18 Attending physician: PAULINA MORAES 07/08/18 15:59 Consult to Physician [CONS] Routine Comment: Consulting Provider: BLANCA GALLARDO Physician Instructions: Reason For Exam: Liver mass 07/08/18 17:07 Consult to Interventional Radiology [CONS] Routine Consulting Provider: MAIDA SKAGGS Reason For Exam: diagnostic/therapeutic thoracentesis Place consult to:: DR. SKAGGS OFFICE Notified:: OFFICE Phone number called:: [phone] Was contact made?: Yes If yes, spoke with:: BE Time called:: 09:24 Comment:: NURSE IS AWARE 07/11/18 13:37 Physical Therapy Evaluation and Treat [CONS] Routine Comment: Reason For Exam: weakness 07/12/18 16:24 Consult to Physician [CONS] Routine Comment: Consulting Provider: IRASEMA HARVEY Physician Instructions: Reason For Exam: Stage IV colon cancer 07/13/18 18:19 Consult to Physician [CONS] Stat Comment: Consulting Provider: ALEN PEOPLES Physician Instructions: Reason For Exam: Ac.CVA 07/14/18 09:56 Consult to Physician [CONS] Routine Comment: Consulting Provider: MAIDA SKAGGS Physician Instructions: Acute CVA ,contraindication for AC Reason For Exam: PE,Yadiel DVT, IVC filter placement Primary care physician: [facility], [place] Hospitalization Reason for admission: Abdominal pain/gen weakness Condition: Serious Pertinent studies: CT abd ECHO REUBEN Head CT Procedures: Thoracentesis Paracentesis EGD Colonoscopy IVC filter placement Hospital course: Patient is a 58 y/o male with PMH of developmental delay, debility who presented to ED for evaluation of abdominal pain and generalized weakness. admission found to be severely anemic with hb 4.4,s/p 5 PRBC, evaluated by GI colonoscopy stage IV colon cancer metastasis to liver, oncology following Acute PE, acute bilateral DVT, not a candidate for anticoagulation due to acute embolic CVA, not a candidate for TPA Evaluated by vascular, scheduled for IVC filter placement today. REUBEN in view of embolic CVA.neg for cardiac eboic source Very poor prognosis, recommend palliative care and hospice, full code at this point. Discharge to inpatient Hospice Assessment and plan; --Acute bilateral lower extremity DVT; contraindication for anticoagulation due to about reasons IVC filter placement today, per Dr. Skaggs, --Acute pulmonary embolism; contraindication for anticoagulation In view of acute CVA, severe anemia requiring multiple units of PRBC --Acute embolic CVA; not a candidate for TPA, aspirin, monitor for any bleeding Statin, neurology following,REUBEN --Stage IV Colon cancer metastasized to liver s/p EGD and colonoscopy 1.Normal upper GI tract, 2. Near-obstructing mass in sigmoid colon; endoscope could not pass (incomplete colonoscopy 2nd malignant obstruction) Oncology evaluated, f/u upon discharge --Anemia due to GI bleed Monitor CBC, s/p 5 units PRBC Transfusion, supportive care. --Liver mass Could be metastatic lesion, GI consulted, check CEA, CA 19-9, --Ascitis, due to liver mass s/p paracentesis drained 4L fluid, wait for fluid study --Moderate bilateral pleural effusion Right more than left, likely from underlying metastatic disease and hepatitic mass s/p thoracentesis today draoned 900cc fluid --Hyponatremia ;Likely from hypervolemia, improved --Severe malnutrition/hypoalbuminemia; nutrition consult Nutrition supplements and supportive care --DVT prophylaxis SCD to BLE while in bed. Hold anticoagulation for now due to symptomatic anemia. Plan of care reviewed with the patient and his nurse Very poor prognosis with multiple problems Recommend palliative care/hospice I discussed in detail with sister Ms.Lizzy Riley at the bedside And with fianc Ms Marianela Tony over the phone They both verbalized understanding of patient's critical condition and poor prognosis. I also recommended to them hospice and palliative care. Very poor prognosis Full CODE STATUS at this point DC to Hospice Disposition: [id number] HOSPICE ([facility]) Time spent for discharge: 35 min Core Measure Documentation - Palliative Care Palliative Care/ Comfort Measures: Hospice Care - Core Measures Any of the following diagnoses?: DVT/PE, stroke - VTE Discharge Requirements Deep Vein Thrombosis/Pulmonary Embolism Present on Admission: Yes Has pt received <5 days of overlap therapy or INR<2.0: No (Contraindication) Anticoagulant overlap therapy prescribed at discharge: No Contraindication No Overlap Therapy order at DC: Medical Contraindication (acute CVA/ anemia/ palliative care) - Stroke Discharge Requirements Statin for LDL = or >70 mg/dl on DC: Yes Anticoag for atrial fib/atrial flutter: Not Applicable (No afib/flutter) Antithrombotic for ischemic stroke: Yes Exam - Constitutional Vitals: Temp Pulse Resp BP Pulse Ox 97 F L 74 20 139/63 95 07/16/18 09:58 07/16/18 09:58 07/16/18 09:58 07/16/18 09:58 07/16/18 09:58 General appearance: Present: mild distress, cachectic, disheveled - EENT Eyes: Present: PERRL, EOM intact - Neck Neck: Present: supple, normal ROM - Respiratory Respiratory effort: normal Respiratory: bilateral: diminished, rhonchi, negative: rales, wheezing - Cardiovascular Rhythm: regular Heart Sounds: Present: S1 & S2 - Extremities Extremities: abnormal (DVT yadiel) - Abdominal General gastrointestinal: Present: soft, tender, distended, normal bowel sounds, mass - Integumentary Integumentary: Present: clear, warm - Musculoskeletal Musculoskeletal: generalized weakness - Psychiatric Psychiatric: other (confused) - Neurologic Neurologic: moves all extremities Plan Activity: advance as tolerated, fall precautions Diet: advance as tolerated Additional Instructions: Transferred to inpatient hospice under the care of hospice nuclear medicine medical director Follow up with: PRIMARY CAREMD [Referring] - 3-5 Days
--- NOTE | 2018-07-16 13:53 | Operative Report ---
Operative Report Operative Report: Exam: Ultrasound and fluoroscopic guided placement of IVC filter Clinical indication: Patient with a history of DVT and PE, unable to anticoagulate secondary to CVA Date: 07/16/2018 Procedure: Following an explanation of the risks, benefits and alternatives; written informed consent was obtained from the patient's sister. The patient was brought to the anterior suite and placed in supine position on the examination table. Initial ultrasound evaluation of the neck demonstrated a patent right internal drug or pain. The patient's right neck and chest wall were prepped and draped in usual sterile fashion. 1% lidocaine was used for anesthesia. Under ultrasound guidance, the right internal jugular vein was cannulated with a 7 cm 18-gauge needle. A 0.035 guidewire was advanced centrally under fluoroscopy. The guidewire was advanced into the left common iliac vein under fluoroscopy. The needle was removed and following serial dilation, the IVC filter introducer sheath and trocar were advanced over the guidewire under fluoroscopy distally. Contrast was injected and an appropriate site was chosen for filter placement. The IVC became patulous in the area of the renal veins. 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 A decision was made to place a filter more distally just proximal to the bifurcation. The filter sheath was advanced to just proximal to the bifurcation. The trocar and guidewire were removed. A [place] IVC filter was then advanced through the sheath and deployed just above the bifurcation. Contrast was injected to document a satisfactory positioning with no significant tilt. The sheath was removed and hemostasis achieved using manual compression. A sterile dressing was applied. The patient tolerated the procedure well. There were no immediate post procedure complications. The patient received a minimal amount of Versed as an anxiolytic. Conscious sedation was not utilized. Continuous cardiopulmonary monitoring was utilized. Impression: Ultrasound and fluoroscopic guided placement of [place] IVC filter
[2018-07-16] MEDS: THERAGRAN-M Tab PO SCH (17:20)
[2018-07-16] MEDS: ASPIRIN PO SCH (17:20)
[2018-07-16] MEDS: PROTONIX PO SCH (17:20)
== END 2018-07-16 17:24 | disposition hospice, inpatient (51) | DRG 356 ==
LOC: ED 11:45 → 3A 15:52
PROVIDERS: ADMIT Internal Medicine; ATTEND Internal Medicine
PROC: 30233N1 Transfusion of Nonautologous Red Blood Cells into Peripheral Vein, Percutaneous Approach (ICD-10-PCS; 2018-07-08)
PROC: 0W9G3ZZ Drainage of Peritoneal Cavity, Percutaneous Approach (ICD-10-PCS; 2018-07-10)
PROC: 0W993ZX Drainage of Right Pleural Cavity, Percutaneous Approach, Diagnostic (ICD-10-PCS; principal; 2018-07-11)
PROC: 0DJ08ZZ Inspection of Upper Intestinal Tract, Via Natural or Artificial Opening Endoscopic (ICD-10-PCS; 2018-07-12)
PROC: 0DBN8ZX Excision of Sigmoid Colon, Via Natural or Artificial Opening Endoscopic, Diagnostic (ICD-10-PCS; 2018-07-12)
PROC: 06H03DZ Insertion of Intraluminal Device into Inferior Vena Cava, Percutaneous Approach (ICD-10-PCS; 2018-07-16)
DX: C18.9 Malignant neoplasm of colon, unspecified (principal); I63.9 Cerebral infarction, unspecified; I26.99 Other pulmonary embolism without acute cor pulmonale; E43 Unspecified severe protein-calorie malnutrition; K92.2 Gastrointestinal hemorrhage, unspecified; I82.403 Acute embolism and thrombosis of unspecified deep veins of lower extremity, bilateral; J90 Pleural effusion, not elsewhere classified; E87.2 Acidosis; E87.1 Hypo-osmolality and hyponatremia; R18.8 Other ascites; Z68.1 Body mass index [BMI] 19.9 or less, adult; C78.7 Secondary malignant neoplasm of liver and intrahepatic bile duct; R16.0 Hepatomegaly, not elsewhere classified; Z82.49 Family history of ischemic heart disease and other diseases of the circulatory system; D50.9 Iron deficiency anemia, unspecified
CPT/HCPCS: 32555; 36415; 36430; 37191; 49083; 70460; 71045; 71260; 74177; 76937; 80048; 80053; 80061; 80074; 82106; 82140; 82270; 82271; 82378; 82728; 82962; 83550; 83690; 83735; 84100; 84439; 84443; 85007; 85014; 85018; 85025; 85027; 85610; 85730; 86301; 86850; 86900; 86901; 86920; 87040; 87086; 87116; 88112; 88305; 88341; 88342; 89051; 93312; 93320; 93325; 93970; 94760; 96374; 96375; G0378; A9270-GY; C1769; C1880; J1170; J1644; J1953; J2250; J2405; J2543; J2704; J2916; J3010; J7030; J7040; P9016; Q9967